=== PATIENT | female | born 1940 | race Caucasian/White ===

== ENCOUNTER 2017-12-17 16:08 | Inpatient (IN) | payer MEDICARE ==
[2017-12-17 19:00] VITALS: BP 163/69; PULSE 117; PULSE 99; RESP 18; TEMP 97.4; O2SAT 95
[2017-12-17] MEDS ORDERED: SODIUM CHLORIDE 0.9% FLUSH 10 ML FLUSH IV FLUSH PRN (19:45)
[2017-12-17] MEDS ORDERED: ACETAMINOPHEN 325 MG TAB PO PRN (19:45)
[2017-12-17] MEDS ORDERED: SENNOSIDES 8.6 MG TAB PO PRN (19:45)
[2017-12-17] MEDS ORDERED: NALOXONE HCL 0.4 MG/ML AMP IV PUSH PRN (19:45)
[2017-12-17] MEDS ORDERED: MAGNESIUM HYDROXIDE SUSP 30 ML CUP PO PRN (19:45)
[2017-12-17] MEDS ORDERED: ONDANSETRON HCL 4 MG/2 ML VIAL IVP PRN (19:45)
[2017-12-17] MEDS ORDERED: BISACODYL 10 MG SUPP RECTAL PRN (19:45)
[2017-12-17] MEDS ORDERED: TEMAZEPAM 15 MG CAP PO PRN (19:45)
[2017-12-17 20:00] VITALS: PULSE 122
[2017-12-17 21:00] VITALS: PULSE 86
--- NOTE | 2017-12-17 21:25 | HHI.HP ---
HPI Service [facility] Hospitalists Primary Care Physician Unknown Admission Diagnosis lung mass Chief Complaint: SOB,cough,weakness for 1 month Travel History International Travel<30 Days: No Contact w/Intl Traveler <30 Da: No Traveled to Known Affected Are: No History of Present Illness 77 y/o white female with hx uterine cancer s/p hysterectomy 2015 at that time chemo was recommended but patient declined due to hololistic ideas ,also had bilateral chronic lymphedema and in 2015 had bilateral DVT and had PE and was on coumadin for short tome but due to her beliefs was stopped off coumadin. Patient went to er with SOB,weakness,and chronic cough in ambulance was in atrial fib and recurred IV lopressor and continues to be in and out of Afib . Patient was in [place] ER and found on chest xray to have several lung mass and sent to [facility] for evaluation. Denies weight loss nausea or vomit and on no significant medications. Review of Systems Constitutional: COMPLAINS OF: Fatigue Respiratory: COMPLAINS OF: Cough, Shortness of breath Past Family Social History Past Medical History DVT pe ,uterine cancer Past Surgical History hysterectomy,IVC filter for DVT Reported Medications none Allergies: Coded Allergies: iron (Verified Allergy, Unknown, 12/17/17) LIQUID ONLY Social History NS,ND Physical Exam Vital Signs Vital Signs Date Time Temp Pulse Resp B/P (MAP) Pulse Ox O2 Delivery O2 Flow Rate FiO2 12/17/17 19:00 95 Nasal Cannula 2.00 12/17/17 19:00 97.4 99 18 163/69 (100) 95 Physical Exam GENERAL: This is a well-nourished, well-developed patient, in no apparent distress. SKIN: No rashes, ecchymoses or lesions. Cool and dry. HEAD: Atraumatic. Normocephalic. No temporal or scalp tenderness. EYES: Pupils equal round and reactive. Extraocular motions intact. No scleral icterus. No injection or drainage. ENT: Nose without bleeding, purulent drainage or septal hematoma. Throat without erythema, tonsillar hypertrophy or exudate. Uvula midline. Airway patent. NECK: Trachea midline. No JVD or lymphadenopathy. Supple, nontender, no meningeal signs. CARDIOVASCULAR: Regular rate and rhythm without murmurs, gallops, or rubs. RESPIRATORY: Decrease breath sounds with rhonchi bilateral bases GASTROINTESTINAL: Abdomen soft, non-tender, nondistended. No hepato-splenomegaly , or palpable masses. No guarding. MUSCULOSKELETAL: Extremities without clubbing, cyanosis,chronic plus 3 edema. No joint tenderness, effusion, or edema noted. No calf tenderness. Negative Homans sign bilaterally. NEUROLOGICAL: Awake and alert. Cranial nerves II through XII intact. Motor and sensory grossly within normal limits. Five out of 5 muscle strength in all muscle groups. Normal speech. Laboratory in review of labs had elevated WBC count Imaging chest xray lung masses with small effusions Course ekg sinus tach with intermit afib Caprini VTE Risk Assessment Caprini VTE Risk Assessment: Mod/High Risk (score >= 2) Caprini Risk Assessment Model Point Value = 1 Point Value = 2 Point Value = 3 Point Value = 5 Age 41-60 Minor surgery BMI > 25 kg/m2 Swollen legs Varicose veins or History of unexplained or recurrent spontaneous Oral contraceptives or hormone replacement Sepsis (< 1 month) Serious lung disease, including pneumonia (< 1 month) Abnormal pulmonary function Acute myocardial infarction Congestive heart failure (< 1 month) History of inflammatory bowel disease Medical patient at bed rest Age 61-74 Arthroscopic surgery Major open surgery (> 45 min) Laparoscopic surgery (> 45 min) Malignancy Confined to bed (> 72 hours) Immobilizing plaster cast Central venous access Age >= 75 History of VTE Family history of VTE Factor V Leiden Prothrombin [id number] Lupus anticoagulant Anticardiolipin antibodies Elevated serum homocysteine Heparin-induced thrombocytopenia Other congenital or acquired thrombophilia Stroke (< 1 month) Elective arthroplasty Hip, pelvis, or leg fracture Acute spinal cord injury (< 1 month) Prophylaxis Regimen Total Risk Factor Score Risk Level Prophylaxis Regimen 0-1 Low Early ambulation 2 Moderate Order ONE of the following: *Sequential Compression Device (SCD) *Heparin 5000 units SQ BID 3-4 Higher Order ONE of the following medications: *Heparin 5000 units SQ TID *Enoxaparin/Lovenox 40 mg SQ daily (WT < 150 kg, CrCl > 30 mL/min) *Enoxaparin/Lovenox 30 mg SQ daily (WT < 150 kg, CrCl > 10-29 mL/min) *Enoxaparin/Lovenox 30 mg SQ BID (WT < 150 kg, CrCl > 30 mL/min) AND/OR *Sequential Compression Device (SCD) 5 or more Highest Order ONE of the following medications: *Heparin 5000 units SQ TID (Preferred with Epidurals) *Enoxaparin/Lovenox 40 mg SQ daily (WT < 150 kg, CrCl > 30 mL/min) *Enoxaparin/Lovenox 30 mg SQ daily (WT < 150 kg, CrCl > 10-29 mL/min) *Enoxaparin/Lovenox 30 mg SQ BID (WT < 150 kg, CrCl > 30 mL/min) AND *Sequential Compression Device (SCD) Assessment and Plan Problem List: (1) Lung mass ICD Codes: R91.8 - Other nonspecific abnormal finding of lung field Plan: patient will let us get CT thorax but refuses contrast will recheck labs in am if CT suggests tuor patient is in agreement for BX (2) Atrial fibrillation ICD Codes: I48.91 - Unspecified atrial fibrillation Status: Acute Plan: will use lopressor prn (3) Lymphedema ICD Codes: I89.0 - Lymphedema, not elsewhere classified Plan: patient has wraps will continue Assessment and Plan further plan as case develops Code Status full Discussed Condition With patient and family Physician Certification 2 Midnight Certification Type: Admission for Inpatient Services Order for Inpatient Services The services are ordered in accordance with Medicare regulations or non- Medicare payer requirements, as applicable. In the case of services not specified as inpatient-only, they are appropriately provided as inpatient services in accordance with the 2-midnight benchmark. Estimated LOS (days): 3 3 days is the estimated time the patient will need to remain in the hospital, assuming treatment plan goals are met and no additional complications. Post-Hospital Plan: Not yet determined Jonathan Layton MD Dec 17, 2017 21:25
[2017-12-17] MEDS: DOCUSATE SODIUM 50 MG/SENNA 8.6 MG TAB PO SCH (21:54)
[2017-12-17] MEDS: SODIUM CHLORIDE 0.9% FLUSH 10 ML FLUSH IV FLUSH SCH (21:54)
[2017-12-17] MEDS: METOPROLOL TARTRATE 5 MG/5 ML VIAL IV PUSH PRN (21:54)
[2017-12-17 22:00] VITALS: PULSE 74
[2017-12-17 23:00] VITALS: BP 117/82; PULSE 109; PULSE 118; RESP 18; TEMP 97.8; O2SAT 96
--- NOTE | 2017-12-17 23:48 | RADRPT ---
EXAM DATE/TIME: 12/17/2017 23:30 [facility] COMPARISON: No previous studies available for comparison. INDICATIONS : Shortness of breath; bilateral pulmonary masses on chest x-ray. RADIATION DOSE: 15.58 CTDIvol (mGy) MEDICAL HISTORY : Uterine cancer SURGICAL HISTORY : Hysterectomy. ENCOUNTER: Subsequent ACUITY: 1 month PAIN SCALE: 0/10 LOCATION: chest TECHNIQUE: Volumetric scanning of the chest was performed. Using automated exposure control and adjustment of t he mA and/or kV according to patient size, radiation dose was kept as low as reasonably achievable to obtain optimal diagnostic quality images. DICOM format image data is available electronically for r eview and comparison. Follow-up recommendations for detected pulmonary nodules are based at a minimum on nodule size and pa tient risk factors according to Fleischner Society Guidelines. FINDINGS: No prior study for comparison. Reportedly there is a history of uterine cancer. There are large bilateral lung masses measuring up to 7.5 cm in the left upper lobe, 7.7 cm in the ri ght upper lobe and 10.5 cm and 6.7 cm in the right lower lobe. Multiple additional smaller nodules ar e present in the lungs. Mildly enlarged pretracheal lymph node measuring up to 1.3 cm and precarinal lymph node measuring up to 2 cm in diameter. A small right-sided pleural effusion. No pericardial effusion. No acute bony abnormalities. No acute findings in the upper abdomen. Large calcified gallstones. CONCLUSION: 1. Numerous large lung masses as well as smaller lung nodules characteristic of metastatic disease. M ild mediastinal adenopathy. 2. Small right-sided pleural effusion. 3. Cholelithiasis. Ashu Ugalde MD on December 17, 2017 at 23:42 Board Certified Radiologist. This report was verified electronically.
[2017-12-18] VITALS (29 sets, daily range): BP systolic 139–152; BP diastolic 64–79; PULSE 79–132; RESP 18–20; TEMP 97.5–98.4; O2SAT 94–98
[2017-12-18] MEDS: METOPROLOL TARTRATE 5 MG/5 ML VIAL IV PUSH PRN ×2 (02:11→09:04)
[2017-12-18 04:13] LABS: AUTOMATED NEUTROPHIL # 11.6 TH/MM3 (1.8-7.7); BASOPHIL % 0.2 % (0.0-2.0); EOSINOPHIL # 0.1 TH/MM3 (0-0.4); EOSINOPHIL % 0.6 % (0.0-4.0); HEMATOCRIT 34.9 % (35.0-46.0); HEMOGLOBIN 10.8 GM/DL (11.6-15.3); LYMPH % 4.7 % (9.0-44.0); LYMPHOCYTE # 0.6 TH/MM3 (1.0-4.8); MEAN CELL VOLUME 81.7 FL (80.0-100.0); MEAN CORPUSCULAR HEMOGLOBIN 25.3 PG (27.0-34.0); MEAN PLATELET VOLUME 7.2 FL (7.0-11.0); MONO % 8.2 % (0.0-8.0); MONOCYTE # 1.1 TH/MM3 (0-0.9); NEUT % 86.3 % (16.0-70.0); PLATELET COUNT 440 TH/MM3 (150-450); RED BLOOD COUNT 4.27 MIL/MM3 (4.00-5.30); RED CELL DISTRIBUTION WIDTH 19.2 % (11.6-17.2); WHITE BLOOD COUNT 13.4 TH/MM3 (4.0-11.0)
[2017-12-18 04:18] LABS: INTERNATIONAL NORMALIZED RATIO 1.2 RATIO; PROTHROMBIN TIME - PATIENT 11.8 SEC (9.8-11.6)
[2017-12-18 04:32] LABS: ALBUMIN 1.9 GM/DL (3.4-5.0); AST (GOT) 24 U/L (15-37); BLOOD UREA NITROGEN 24 MG/DL (7-18); CALCIUM 9.7 MG/DL (8.5-10.1); CHLORIDE 104 MEQ/L (98-107); CREATININE 0.88 MG/DL (0.50-1.00); GLOMERULAR FILTRATION RATE 62 ML/MIN (>89); GLUCOSE,RANDOM 118 MG/DL (74-106); SODIUM (NA) 141 MEQ/L (136-145)
[2017-12-18 04:35] LABS: ALKALINE PHOSPHATASE 71 U/L (45-117); ALT (GPT) 13 U/L (10-53); TOTAL BILIRUBIN ADULT 0.6 MG/DL (0.2-1.0); TOTAL PROTEIN 7.2 GM/DL (6.4-8.2)
[2017-12-18] MEDS: DOCUSATE SODIUM 50 MG/SENNA 8.6 MG TAB PO SCH ×2 (09:00→20:17)
[2017-12-18] MEDS: SODIUM CHLORIDE 0.9% FLUSH 10 ML FLUSH IV FLUSH SCH ×2 (09:04→20:17)
[2017-12-18] MEDS: DILTIAZEM HCL 60 MG TAB PO SCH ×3 (12:45→23:22)
--- NOTE | 2017-12-18 17:28 | HHI.PR ---
Subjective Remarks No new complaints. Objective Vitals Vital Signs Date Time Temp Pulse Resp B/P (MAP) Pulse Ox O2 Delivery O2 Flow Rate FiO2 12/18/17 17:00 121 12/18/17 16:00 112 12/18/17 15:32 97.5 115 20 146/64 (91) 98 12/18/17 15:00 116 12/18/17 14:00 114 12/18/17 13:00 119 12/18/17 12:00 129 12/18/17 11:29 97.5 116 20 147/66 (93) 97 12/18/17 11:00 115 12/18/17 10:00 112 12/18/17 09:00 110 12/18/17 08:00 120 12/18/17 07:47 97 Nasal Cannula 2.00 12/18/17 07:46 98.0 121 20 150/72 (98) 97 12/18/17 07:00 119 12/18/17 06:00 115 12/18/17 05:00 120 12/18/17 04:00 98.4 119 18 152/79 (103) 98 12/18/17 04:00 119 12/18/17 03:00 113 12/18/17 02:00 79 12/18/17 01:00 132 12/18/17 00:00 123 12/17/17 23:00 118 12/17/17 23:00 97.8 109 18 117/82 (94) 96 12/17/17 22:00 74 12/17/17 21:00 86 12/17/17 20:00 122 12/17/17 19:00 95 Nasal Cannula 2.00 12/17/17 19:00 117 12/17/17 19:00 95 Nasal Cannula 2.00 12/17/17 19:00 97.4 99 18 163/69 (100) 95 Result Diagram: 12/18/17 0400 12/18/17 0400 Other Results Laboratory Tests Test 12/18/17 04:00 White Blood Count 13.4 TH/MM3 Red Blood Count 4.27 MIL/MM3 Hemoglobin 10.8 GM/DL Hematocrit 34.9 % Mean Corpuscular Volume 81.7 FL Mean Corpuscular Hemoglobin 25.3 PG Mean Corpuscular Hemoglobin Concent 31.0 % Red Cell Distribution Width 19.2 % Platelet Count 440 TH/MM3 Mean Platelet Volume 7.2 FL Neutrophils (%) (Auto) 86.3 % Lymphocytes (%) (Auto) 4.7 % Monocytes (%) (Auto) 8.2 % Eosinophils (%) (Auto) 0.6 % Basophils (%) (Auto) 0.2 % Neutrophils # (Auto) 11.6 TH/MM3 Lymphocytes # (Auto) 0.6 TH/MM3 Monocytes # (Auto) 1.1 TH/MM3 Eosinophils # (Auto) 0.1 TH/MM3 Basophils # (Auto) 0.0 TH/MM3 CBC Comment DIFF FINAL Differential Comment Prothrombin Time 11.8 SEC Prothromb Time International Ratio 1.2 RATIO Blood Urea Nitrogen 24 MG/DL Creatinine 0.88 MG/DL Random Glucose 118 MG/DL Total Protein 7.2 GM/DL Albumin 1.9 GM/DL Calcium Level 9.7 MG/DL Alkaline Phosphatase 71 U/L Aspartate Amino Transf (AST/SGOT) 24 U/L Alanine Aminotransferase (ALT/SGPT) 13 U/L Total Bilirubin 0.6 MG/DL Sodium Level 141 MEQ/L Potassium Level 3.9 MEQ/L Chloride Level 104 MEQ/L Carbon Dioxide Level 28.0 MEQ/L Anion Gap 9 MEQ/L Estimat Glomerular Filtration Rate 62 ML/MIN Imaging Last Impressions Chest CT 12/17/17 0000 Signed Impressions: Service Date/Time: Sunday, December 17, 2017 23:30 - CONCLUSION: 1. Numerous large lung masses as well as smaller lung nodules characteristic of metastatic disease. Mild mediastinal adenopathy. 2. Small right-sided pleural effusion. 3. Cholelithiasis. Ashu Ugalde MD c Objective Remarks GENERAL: This is a well-nourished, well-developed patient, in no apparent distress. CARDIOVASCULAR: Regular rate and rhythm without murmurs, gallops, or rubs. RESPIRATORY: Clear to auscultation. Breath sounds equal bilaterally. No wheezes , rales, or rhonchi. GASTROINTESTINAL: Abdomen soft, non-tender, nondistended. Normal active bowel sounds MUSCULOSKELETAL: Extremities without clubbing, cyanosis, or edema. NEURO: Alert & Oriented x4 to person, place, time, situation. Moves all ext x4 A/P Problem List: (1) Lung mass ICD Codes: R91.8 - Other nonspecific abnormal finding of lung field Plan: - Pt is a 77 y/o WF with hx uterine cancer s/p hysterectomy in 2014, at that time chemo was recommended but patient declined due to holistic ideas. She also had bilateral chronic lymphedema and in 2014 had bilateral DVT and had PE and was on Coumadin for short tome but due to her beliefs this was stopped. - Patient went to ED in [place] on 12/17, with complaints of SOB, weakness, and chronic cough. En route to the ED, in the ambulance, pt went into A. fib and received IV Lopressor. - She had a CXR in the ED which revealed bilateral large pulmonary masses. - She was transferred to [facility] for further management - CT Chest (12/18) --> Numerous large lung masses, measuring up to 7.5cm in the left upper lobe, 7.7cm in the right upper lobe and 10.5 and 6.7cm in the right lower lobe as well as smaller lung nodules characteristic of metastatic disease. Mild mediastinal adenopathy. Small right-sided pleural effusion. - Recommending biopsy to further evaluate these lung masses (2) Atrial fibrillation ICD Codes: I48.91 - Unspecified atrial fibrillation Status: Acute Plan: - Pt was initially given IV Lopressor - Pt still intermittently in A. fib RVR - Start Cardizem 60mg PO Q6H - Telemetry - The hospital does not have IV Cardizem available at this time - We will give IV Digoxin as pt has remained with HR in the 120-130's on telemetry (3) Lymphedema ICD Codes: I89.0 - Lymphedema, not elsewhere classified Plan: - Patient has wraps on and we will continue those for now Assessment and Plan Patient examined. Assessment and plan formulated with Mindy Landry PA-C. I agree with the above. Case d/w pt and 2 daughters at the bedside. Pt denies palpitations. telemetry shows A.Fib Pt receiving prn IV metoprolol, scheduled short acting cardizems. Pt remains tachycardic. IV digoxin ordered. Results of CT thorax d/w pt and daughters. B/L multiple lung masses. Will obtain CT guided biopsy of lung mass. Mindy Landry Dec 18, 2017 17:27 Chan Kaplan DO Dec 19, 2017 06:11
[2017-12-18] MEDS ORDERED: DIGOXIN 0.5 MG/2 ML VIAL IV PUSH ONE (18:00)
[2017-12-19] VITALS (31 sets, daily range): BP systolic 144–154; BP diastolic 60–74; PULSE 76–113; RESP 18–20; TEMP 97.4–98.2; O2SAT 92–97
[2017-12-19] MEDS: DIGOXIN 0.5 MG/2 ML VIAL IV PUSH SCH ×2 (03:17→08:54)
[2017-12-19] MEDS: DILTIAZEM HCL 60 MG TAB PO SCH ×4 (06:11→23:37)
[2017-12-19] MEDS: SODIUM CHLORIDE 0.9% FLUSH 10 ML FLUSH IV FLUSH SCH ×2 (08:39→21:35)
[2017-12-19] MEDS: DOCUSATE SODIUM 50 MG/SENNA 8.6 MG TAB PO SCH ×2 (08:39→21:00)
[2017-12-19] MEDS ORDERED: LIDOCAINE HCL 1% 20 ML VIAL ONE (09:04)
[2017-12-19] MEDS ORDERED: MIDAZOLAM HCL 2 MG/2 ML VIAL ONE (09:48)
--- NOTE | 2017-12-19 10:12 | PD.RAD ---
Post CT Procedure Prog Note Pre Procedure Diagnosis: (1) Lung mass Post Procedure Diagnosis: (1) Lung mass Procedure Date: Dec 19, 2017 Supervising Radiologist: Bijan Montes Anesthesia: Conscious Sedation Plan of Activity Patient to Unit: ROPU Patient Condition: Good See PACS Report for procedural detail/treatment Bijan Montes MD Dec 19, 2017 10:12
--- NOTE | 2017-12-19 10:56 | RADRPT ---
EXAM DATE/TIME: 12/19/2017 09:53 [facility] COMPARISON: No previous studies available for comparison. INDICATIONS : Multiple large bilateral lung masses. The right lung mass will be targeted. SEDATION TIME: 30 minutes BIOPSY SITE: Right lung MEDICATION(S): 1.) 2 mg midazolam (Versed) IV 2.) 100 mcg fentanyl (Sublimaze) IV DEVICE(S): 1.) 18 gauge Core biopsy needle Bard MEDICAL HISTORY : None. SURGICAL HISTORY : Hysterectomy. ENCOUNTER: Initial ACUITY: 1 day PAIN SCORE: 0/10 LOCATION: Right chest A total of three core specimen(s) were obtained and sent to the laboratory for pathologic evaluation. PROCEDURE: 1. CT guided lung biopsy. 2. Conscious sedation with continuous EKG and oximetry monitoring. 3. EKG and oximetry remained stable throughout the procedure. Prior to the procedure informed consent was obtained. Any appropriate prior imaging studies were rev iewed. Using automated exposure control and adjustment of the mA and/or kV according to patient size, radiation dose was kept as low as reasonably achievable to obtain optimal diagnostic quality images. DICOM format image data is available electronically for review and comparison. The site was prepped in a sterile fashion. Full sterile technique was used, including cap, mask, tony rile gloves and gown and a large sterile sheet. Hand hygiene and 2% chlorhexidine and/or betadine/al cohol prep was utilized per protocol for cutaneous antisepsis. The skin and subcutaneous tissues wer e infiltrated with local anesthetic solution. With CT guidance the previously identified target was localized. Biopsy was performed using the presc ribed needle as above. Adequate hemostasis was obtained with compression at the puncture site. Follow-up CT scan reveals no pneumothorax. Conscious sedation was performed with the prescribed dosages and duration as above in the presence of an independent trained radiology nurse to assist in the monitoring of the patient. EKG and oximetry remained stable throughout the procedure. The patient tolerated the procedure well and there were no complications. The patient was sent to Radiology Outpatient Unit in stable condition. CONCLUSION: Uncomplicated CT guided biopsy. Bijan Montes MD on December 19, 2017 at 10:53 Board Certified Radiologist. This report was verified electronically.
--- NOTE | 2017-12-19 11:56 | EKG ---
Date Performed: 12/19/2017 Time Performed: 09:10:58 PTAGE: 77 years EKG: Sinus tachycardia with PVC(s) Leftward axis Possible inferior infarct - age undetermined Ab normal ECG NO PREVIOUS TRACING DOCTOR: Tay Mccartney Interpretating Date/Time 12/19/2017 11:54:54
--- NOTE | 2017-12-19 12:30 | RADRPT ---
EXAM DATE/TIME: 12/19/2017 12:05 [facility] COMPARISON: CT NEEDLE BIOPSY LUNG, RIGHT, December 19, 2017, 9:53. INDICATIONS : Post lung biopsy MEDICAL HISTORY : multiple lung masses SURGICAL HISTORY : Hysterectomy. infusport ENCOUNTER: Subsequent ACUITY: 1 day PAIN SCORE: 0/10 LOCATION: Right chest FINDINGS: A single frontal expiratory view of the chest was performed. Bilateral pulmonary masses. Left sided p ort with tip in the SVC. The cardio-mediastinal contours and bronchopulmonary markings are unremarkable for an expiratory exam . Osseous structures are intact. CONCLUSION: No pneumothorax. Bora Orlando MD on December 19, 2017 at 12:26 Board Certified Radiologist. This report was verified electronically.
--- NOTE | 2017-12-19 18:16 | HHI.PR ---
Subjective Remarks No new complaints. Poor PO intake. Objective Vitals Vital Signs Date Time Temp Pulse Resp B/P (MAP) Pulse Ox O2 Delivery O2 Flow Rate FiO2 12/19/17 18:00 98 12/19/17 17:00 107 12/19/17 16:00 103 12/19/17 15:02 97.4 107 18 154/69 (97) 95 12/19/17 15:00 76 12/19/17 14:00 98 12/19/17 13:00 102 12/19/17 12:00 105 12/19/17 11:49 97 Nasal Cannula 1.00 12/19/17 11:05 97.6 111 18 153/68 (96) 96 12/19/17 11:00 110 12/19/17 10:56 97.6 112 18 145/60 (88) 96 12/19/17 10:26 97.6 111 18 153/68 (96) 96 12/19/17 09:00 107 12/19/17 08:00 104 12/19/17 07:47 97.4 91 18 144/72 (96) 95 12/19/17 07:46 95 Nasal Cannula 2.00 12/19/17 07:00 85 12/19/17 06:06 109 12/19/17 05:38 85 12/19/17 04:23 97.7 106 147/63 (91) 92 12/19/17 04:16 113 12/19/17 03:00 106 12/19/17 02:16 77 12/19/17 01:14 111 12/19/17 00:27 87 12/18/17 23:49 97.6 116 139/65 (89) 95 12/18/17 23:46 108 12/18/17 22:00 107 12/18/17 21:45 94 Nasal Cannula 1.00 12/18/17 21:00 110 12/18/17 20:00 110 12/18/17 19:00 119 12/18/17 19:00 97.9 119 152/69 (96) 95 12/18/17 19:00 95 Nasal Cannula 2.00 12/19/17 12/19/17 12/20/17 15:00 23:00 07:00 Intake Total 840 ml Balance 840 ml Intake Oral 840 ml # Voids 3 Result Diagram: 12/18/17 0400 12/18/17 0400 Imaging Last Impressions Chest X-Ray 12/19/17 1159 Signed Impressions: Service Date/Time: Tuesday, December 19, 2017 12:05 - CONCLUSION: No pneumothorax. Bora Orlando MD Lung Biopsy CT 12/18/17 0000 Signed Impressions: Service Date/Time: Tuesday, December 19, 2017 09:53 - CONCLUSION: Uncomplicated CT guided biopsy. Bijan Montes MD Chest CT 12/17/17 0000 Signed Impressions: Service Date/Time: Sunday, December 17, 2017 23:30 - CONCLUSION: 1. Numerous large lung masses as well as smaller lung nodules characteristic of metastatic disease. Mild mediastinal adenopathy. 2. Small right-sided pleural effusion. 3. Cholelithiasis. Ashu Ugalde MD Objective Remarks GENERAL: This is a well-nourished, well-developed patient, in no apparent distress. CARDIOVASCULAR: Regular rate and rhythm without murmurs, gallops, or rubs. RESPIRATORY: Clear to auscultation. Breath sounds equal bilaterally. No wheezes , rales, or rhonchi. GASTROINTESTINAL: Abdomen soft, non-tender, nondistended. Normal active bowel sounds MUSCULOSKELETAL: Extremities without clubbing, cyanosis, or edema. NEURO: Alert & Oriented x4 to person, place, time, situation. Moves all ext x4 A/P Problem List: (1) Lung mass ICD Codes: R91.8 - Other nonspecific abnormal finding of lung field Plan: - Pt is a 77 y/o WF with hx uterine cancer s/p hysterectomy in 2014, at that time chemo was recommended but patient declined due to holistic ideas. She also had bilateral chronic lymphedema and in 2014 had bilateral DVT and had PE and was on Coumadin for short tome but due to her beliefs this was stopped. - Patient went to ED in [place] on 12/17, with complaints of SOB, weakness, and chronic cough. En route to the ED, in the ambulance, pt went into A. fib and received IV Lopressor. - She had a CXR in the ED which revealed bilateral large pulmonary masses. - She was [facility] to [facility] for [facility] management - CT Chest (12/18) --> Numerous large lung masses, measuring up to 7.5cm in the left upper lobe, 7.7cm in the right upper lobe and 10.5 and 6.7cm in the right lower lobe as well as smaller lung nodules characteristic of metastatic disease. Mild mediastinal adenopathy. Small right-sided pleural effusion. - CT guided right lung biopsy obtain (12/19) --> pathology pending - trial of remeron as appetite stimulant - request PT - DVT prophylaxis - supportive care (2) Atrial fibrillation ICD Codes: I48.91 - Unspecified atrial fibrillation Status: Acute Plan: - observe on telemetry - Pt was initially given IV Lopressor - Pt still intermittently in A. fib RVR - Cardizem 60mg PO Q6H - Telemetry - The hospital does not have IV Cardizem available at this time - received IV digoxin x 2 - digoxin level 3.8 (12/19) - NO c/o nausea. No digoxin effect noted on EKG - hold digoxin - repeat digoxin level in AM (3) Lymphedema ICD Codes: I89.0 - Lymphedema, not elsewhere classified Plan: - Patient has wraps on and we will continue those for now Chan Kaplan DO Dec 19, 2017 18:16
[2017-12-19] MEDS: ENOXAPARIN SODIUM 40 MG/0.4 ML SYRINGE SQ SCH (18:33)
[2017-12-19] MEDS: MIRTAZAPINE 15 MG TAB PO SCH (21:35)
[2017-12-20] VITALS (25 sets, daily range): BP systolic 105–151; BP diastolic 50–69; PULSE 82–115; RESP 16–20; TEMP 96.3–98.4; O2SAT 93–95
[2017-12-20 04:06] LABS: AUTOMATED NEUTROPHIL # 8.5 TH/MM3 (1.8-7.7); BASOPHIL # 0.1 TH/MM3 (0-0.2); BASOPHIL % 0.7 % (0.0-2.0); EOSINOPHIL # 0.1 TH/MM3 (0-0.4); EOSINOPHIL % 0.7 % (0.0-4.0); HEMOGLOBIN 11.4 GM/DL (11.6-15.3); LYMPH % 6.2 % (9.0-44.0); LYMPHOCYTE # 0.6 TH/MM3 (1.0-4.8); MEAN CELL VOLUME 81.9 FL (80.0-100.0); MEAN CORPUSCULAR HEMOGLOBIN 25.9 PG (27.0-34.0); MEAN CORPUSCULAR HGB CONC 31.6 % (32.0-36.0); MEAN PLATELET VOLUME 7.4 FL (7.0-11.0); MONO % 9.5 % (0.0-8.0); NEUT % 82.9 % (16.0-70.0); PLATELET COUNT 434 TH/MM3 (150-450); RED CELL DISTRIBUTION WIDTH 19.5 % (11.6-17.2); WHITE BLOOD COUNT 10.3 TH/MM3 (4.0-11.0)
[2017-12-20 04:49] LABS: BICARBONATE 28.9 MEQ/L (21.0-32.0); CALCIUM 9.5 MG/DL (8.5-10.1); CREATININE 0.6 MG/DL (0.50-1.00); DIGOXIN 1.7 NG/ML (0.8-2.0); MAGNESIUM 1.9 MG/DL (1.5-2.5)
[2017-12-20] MEDS: DILTIAZEM HCL 60 MG TAB PO SCH (06:11)
[2017-12-20] MEDS: SODIUM CHLORIDE 0.9% FLUSH 10 ML FLUSH IV FLUSH SCH ×2 (09:00→20:51)
[2017-12-20] MEDS: DIGOXIN 0.5 MG/2 ML VIAL IV PUSH SCH (09:10)
[2017-12-20] MEDS: DOCUSATE SODIUM 50 MG/SENNA 8.6 MG TAB PO SCH ×2 (09:10→20:51)
--- NOTE | 2017-12-20 10:12 | HHI.PR ---
Subjective Remarks No new complaints. Objective Vitals Vital Signs Date Time Temp Pulse Resp B/P (MAP) Pulse Ox O2 Delivery O2 Flow Rate FiO2 12/20/17 10:00 100 12/20/17 09:00 94 12/20/17 08:00 102 12/20/17 07:15 86 12/20/17 07:15 94 Nasal Cannula 2.00 12/20/17 07:15 98.1 105 20 136/60 (85) 94 12/20/17 06:11 100 12/20/17 05:00 105 12/20/17 04:00 90 12/20/17 03:45 98.4 102 20 151/69 (96) 93 12/20/17 03:00 106 12/20/17 02:00 115 12/20/17 01:00 104 12/20/17 00:00 98.4 115 20 146/65 (92) 93 12/20/17 00:00 94 Nasal Cannula 2.00 12/20/17 00:00 104 12/20/17 00:00 106 12/19/17 23:00 112 12/19/17 22:12 92 Nasal Cannula 1.00 12/19/17 22:00 94 12/19/17 21:00 108 12/19/17 20:00 98.2 87 20 145/74 (97) 93 12/19/17 20:00 108 12/19/17 20:00 93 Nasal Cannula 2.00 12/19/17 19:00 87 12/19/17 18:00 98 12/19/17 17:00 107 12/19/17 16:00 103 12/19/17 15:02 97.4 107 18 154/69 (97) 95 12/19/17 15:00 76 12/19/17 14:00 98 12/19/17 13:00 102 12/19/17 12:00 105 12/19/17 11:49 97 Nasal Cannula 1.00 12/19/17 11:05 97.6 111 18 153/68 (96) 96 12/19/17 11:00 110 12/19/17 10:56 97.6 112 18 145/60 (88) 96 12/19/17 10:26 97.6 111 18 153/68 (96) 96 Result Diagram: 12/20/1733112/20/17 033 Imaging Last Impressions Chest X-Ray 12/19/17 1159 Signed Impressions: Service Date/Time: Tuesday, December 19, 2017 12:05 - CONCLUSION: No pneumothorax. Bora Orlando MD Lung Biopsy CT 12/18/17 0000 Signed Impressions: Service Date/Time: Tuesday, December 19, 2017 09:53 - CONCLUSION: Uncomplicated CT guided biopsy. Bijan Montes MD Chest CT 12/17/17 0000 Signed Impressions: Service Date/Time: Sunday, December 17, 2017 23:30 - CONCLUSION: 1. Numerous large lung masses as well as smaller lung nodules characteristic of metastatic disease. Mild mediastinal adenopathy. 2. Small right-sided pleural effusion. 3. Cholelithiasis. Ashu Ugalde MD Objective Remarks GENERAL: This is a well-nourished, well-developed patient, in no apparent distress. CARDIOVASCULAR: Regular rate and rhythm without murmurs, gallops, or rubs. RESPIRATORY: Clear to auscultation. Breath sounds equal bilaterally. No wheezes , rales, or rhonchi. GASTROINTESTINAL: Abdomen soft, non-tender, nondistended. Normal active bowel sounds MUSCULOSKELETAL: Extremities without clubbing, cyanosis, or edema. NEURO: Alert & Oriented x4 to person, place, time, situation. Moves all ext x4 A/P Problem List: (1) Lung mass ICD Codes: R91.8 - Other nonspecific abnormal finding of lung field Plan: - Pt is a 77 y/o WF with hx uterine cancer s/p hysterectomy in 2014, at that time chemo was recommended but patient declined due to holistic ideas. She also had bilateral chronic lymphedema and in 2014 had bilateral DVT and had PE and was on Coumadin for short tome but due to her beliefs this was stopped. - Patient went to ED in [place] on 12/17, with complaints of SOB, weakness, and chronic cough. En route to the ED, in the ambulance, pt went into A. fib and received IV Lopressor. - She had a CXR in the ED which revealed bilateral large pulmonary masses. - She was transferred to [facility] for further management - CT Chest (12/18) --> Numerous large lung masses, measuring up to 7.5cm in the left upper lobe, 7.7cm in the right upper lobe and 10.5 and 6.7cm in the right lower lobe as well as smaller lung nodules characteristic of metastatic disease. Mild mediastinal adenopathy. Small right-sided pleural effusion. - CT guided right lung biopsy obtain (12/19) --> pathology pending. - case d/w pathology, Dr. Ma - 3 large cores were obtained but unfortunately they are necrotic, so NOT diagnostic - Case d/w pt/daughter/family at bedside. - They request repeat Biopsy to obtain tissue diagnosis - NPO after MN for Repeat CT guided Bx of lung mass 12/21 - trial of remeron as appetite stimulant - PT - DVT prophylaxis - supportive care (2) Atrial fibrillation ICD Codes: I48.91 - Unspecified atrial fibrillation Status: Acute Plan: - observe on telemetry - Pt was initially given IV Lopressor - Pt still intermittently in A. fib RVR, spiking up to 120 bpm - change to long acting cardizem 300mg daily - resume digoxin 0.25mg daily - digoxin level 3.8 (12/19), 1.7 (12/20) - repeat digoxin level in AM (3) Lymphedema ICD Codes: I89.0 - Lymphedema, not elsewhere classified Plan: - Patient has wraps on and we will continue those for now Problem Qualifiers (1) Atrial fibrillation: Qualified Codes: I48.2 - Chronic atrial fibrillation Chan Kaplan DO Dec 20, 2017 10:12
[2017-12-20] MEDS: DILTIAZEM-CD 300 MG CAP ER PO SCH (12:05)
[2017-12-20] MEDS: 1/2 NS + KCL 20 MEQ INJ 1,000 ML IV SCH (12:19)
[2017-12-20] MEDS: ENOXAPARIN SODIUM 40 MG/0.4 ML SYRINGE SQ SCH (17:45)
[2017-12-20] MEDS: MIRTAZAPINE 15 MG TAB PO SCH (20:51)
[2017-12-21] VITALS (22 sets, daily range): BP systolic 115–148; BP diastolic 56–71; PULSE 80–98; RESP 16–22; TEMP 97.4–98.2; O2SAT 92–96
[2017-12-21] MEDS: 1/2 NS + KCL 20 MEQ INJ 1,000 ML IV SCH ×2 (04:35→12:50)
[2017-12-21] MEDS: DIGOXIN 0.125 MG TAB PO SCH (09:05)
[2017-12-21] MEDS: DOCUSATE SODIUM 50 MG/SENNA 8.6 MG TAB PO SCH ×2 (09:05→20:53)
[2017-12-21] MEDS: SODIUM CHLORIDE 0.9% FLUSH 10 ML FLUSH IV FLUSH SCH ×2 (09:06→20:55)
[2017-12-21] MEDS: DILTIAZEM-CD 300 MG CAP ER PO SCH (09:23)
[2017-12-21] MEDS ORDERED: MIDAZOLAM HCL 2 MG/2 ML VIAL ONE (10:37)
--- NOTE | 2017-12-21 12:08 | RADRPT ---
EXAM DATE/TIME: 12/21/2017 11:44 [facility] COMPARISON: CHEST EXPIRATION ONLY, December 19, 2017, 12:05. INDICATIONS : Post lung biopsy. Evaluate for pneumothorax. MEDICAL HISTORY : Uterine cancer SURGICAL HISTORY : Hysterectomy. ENCOUNTER: Subsequent ACUITY: 1 day PAIN SCORE: 0/10 LOCATION: Right chest FINDINGS: A single AP expiratory erect view of the chest was obtained and again demonstrates the left subclavia n implantable port catheter in place. There is no pneumothorax. The bilateral lung masses are again n oted without significant change. The heart size is within normal limits. There are no new infiltrates . CONCLUSION: Stable appearance with no pneumothorax after lung biopsy. Adonis Fonseca MD on December 21, 2017 at 12:05 Board Certified Radiologist. This report was verified electronically.
[2017-12-21] MEDS ORDERED: LIDOCAINE HCL 1% 10 ML VIAL OTHER ONE (12:23)
--- NOTE | 2017-12-21 13:40 | RADRPT ---
EXAM DATE/TIME: 12/21/2017 11:03 [facility] COMPARISON: CT NEEDLE BIOPSY LUNG, RIGHT, December 19, 2017, 9:53. INDICATIONS : Right lung mass. SEDATION TIME: 30 minutes BIOPSY SITE: Right MEDICATION(S): 1.) 1.5 mg midazolam (Versed) IV 2.) 75 mcg fentanyl (Sublimaze) IV DEVICE(S): 1.) 18 gauge Temno core biopsy needle MEDICAL HISTORY : None. SURGICAL HISTORY : Hysterectomy. ENCOUNTER: Initial ACUITY: 1 day PAIN SCORE: 0/10 LOCATION: Right A total of two core specimen(s) were obtained and sent to the laboratory for pathologic evaluation. Samson walters teletray operator confirmed adequate tissue for diagnosis after the first pass. PROCEDURE: 1. CT guided lung biopsy. 2. Conscious sedation with continuous EKG and oximetry monitoring. 3. EKG and oximetry remained stable throughout the procedure. Prior to the procedure informed consent was obtained. Any appropriate prior imaging studies were rev iewed. Using automated exposure control and adjustment of the mA and/or kV according to patient size, radiation dose was kept as low as reasonably achievable to obtain optimal diagnostic quality images. DICOM format image data is available electronically for review and comparison. The site was prepped in a sterile fashion. Full sterile technique was used, including cap, mask, tony rile gloves and gown and a large sterile sheet. Hand hygiene and 2% chlorhexidine and/or betadine/al cohol prep was utilized per protocol for cutaneous antisepsis. The skin and subcutaneous tissues wer e infiltrated with local anesthetic solution. With CT guidance the previously identified target was localized. Biopsy was performed using the presc ribed needle as above. Adequate hemostasis was obtained with compression at the puncture site. Follow-up CT scan reveals no pneumothorax. Conscious sedation was performed with the prescribed dosages and duration as above in the presence of an independent trained radiology nurse to assist in the monitoring of the patient. EKG and oximetry remained stable throughout the procedure. The patient tolerated the procedure well and there were no complications. The patient was sent to Radiology Outpatient Unit in stable condition. CONCLUSION: Uncomplicated CT guided biopsy. Aly Samuel MD on December 21, 2017 at 13:36 Board Certified Radiologist. This report was verified electronically.
--- NOTE | 2017-12-21 14:29 | RADRPT ---
EXAM DATE/TIME: 12/21/2017 13:35 [facility] COMPARISON: CHEST EXPIRATION ONLY, December 21, 2017, 11:44. INDICATIONS : Pneumothorax. MEDICAL HISTORY : None. SURGICAL HISTORY : Infuse a port. ENCOUNTER: Subsequent ACUITY: 4 - 6 days PAIN SCORE: 0/10 LOCATION: chest FINDINGS: There is no evidence of pneumothorax status post right lung biopsy. Multiple large bilateral pulmonar y masses are stable. Left subclavian [id number] is unchanged in position. The heart is stable. Deg enerative changes and scoliosis of the thoracic spine are noted. CONCLUSION: No pneumothorax status post right lung biopsy. Stable large bilateral pulmonary michael s. Degenerative changes and scoliosis of the thoracic spine. Aly Samuel MD on December 21, 2017 at 14:25 Board Certified Radiologist. This report was verified electronically.
--- NOTE | 2017-12-21 15:06 | HHI.PR ---
Subjective Remarks No new complaints. Objective Vitals Vital Signs Date Time Temp Pulse Resp B/P (MAP) Pulse Ox O2 Delivery O2 Flow Rate FiO2 12/21/17 14:07 97.5 83 20 122/58 (79) 95 12/21/17 13:24 83 22 116/63 (80) 94 12/21/17 13:09 83 12/21/17 12:54 97.6 93 22 115/70 (85) 93 12/21/17 12:35 96 18 136/62 (86) 93 12/21/17 12:05 95 18 139/66 (90) 92 12/21/17 11:50 97.4 98 18 148/68 (94) 93 12/21/17 08:30 97.7 97 18 122/71 (88) 94 12/21/17 08:30 95 Nasal Cannula 2.00 12/21/17 08:02 93 Nasal Cannula 2.00 12/21/17 08:00 90 12/21/17 04:44 95 Nasal Cannula 2.00 12/21/17 04:36 97.8 87 16 142/70 (94) 95 12/21/17 04:00 83 12/21/17 00:20 97.8 87 18 115/56 (75) 96 12/21/17 00:10 84 12/20/17 21:58 95 12/20/17 21:28 91 12/20/17 20:36 96.3 92 16 121/57 (78) 95 12/20/17 18:43 97.5 82 18 105/50 (68) 95 12/20/17 18:00 114 12/20/17 17:35 93 Nasal Cannula 1.00 12/20/17 17:00 86 12/20/17 16:00 109 12/21/17 12/21/17 12/22/17 15:00 23:00 07:00 Bladder Scan Volume Amount 138 ml # Voids 3 Result Diagram: 12/20/17 0332 12/20/17 0332 Imaging Last Impressions Chest X-Ray 12/21/17 1330 Signed Impressions: Service Date/Time: November 13:35 - CONCLUSION: No pneumothorax status post right lung biopsy. Stable large bilateral pulmonary masses. Degenerative changes and scoliosis of the thoracic spine. Aly Samuel MD Lung Biopsy CT 12/21/17 0000 Signed Impressions: Service Date/Time: November 11:03 - CONCLUSION: Uncomplicated CT guided biopsy. Aly Samuel MD Chest CT 12/17/17 0000 Signed Impressions: Service Date/Time: Sunday, December 17, 2017 23:30 - CONCLUSION: 1. Numerous large lung masses as well as smaller lung nodules characteristic of metastatic disease. Mild mediastinal adenopathy. 2. Small right-sided pleural effusion. 3. Cholelithiasis. Ashu Ugalde MD Objective Remarks GENERAL: This is a well-nourished, well-developed patient, in no apparent distress. CARDIOVASCULAR: Regular rate and rhythm without murmurs, gallops, or rubs. RESPIRATORY: Clear to auscultation. Breath sounds equal bilaterally. No wheezes , rales, or rhonchi. GASTROINTESTINAL: Abdomen soft, non-tender, nondistended. Normal active bowel sounds MUSCULOSKELETAL: Extremities without clubbing, cyanosis, or edema. NEURO: Alert & Oriented x4 to person, place, time, situation. Moves all ext x4 A/P Problem List: (1) Lung mass ICD Codes: R91.8 - Other nonspecific abnormal finding of lung field Plan: - Pt is a 77 y/o WF with hx uterine cancer s/p hysterectomy in 2014, at that time chemo was recommended but patient declined due to holistic ideas. She also had bilateral chronic lymphedema and in 2014 had bilateral DVT and had PE and was on Coumadin for short tome but due to her beliefs this was stopped. - Patient went to ED in [place] on 12/17, with complaints of SOB, weakness, and chronic cough. En route to the ED, in the ambulance, pt went into A. fib and received IV Lopressor. - She had a CXR in the ED which revealed bilateral large pulmonary masses. - She was transferred to [facility] for further management - CT Chest (12/18) --> Numerous large lung masses, measuring up to 7.5cm in the left upper lobe, 7.7cm in the right upper lobe and 10.5 and 6.7cm in the right lower lobe as well as smaller lung nodules characteristic of metastatic disease. Mild mediastinal adenopathy. Small right-sided pleural effusion. - CT guided right lung biopsy obtain (12/19) --> pathology pending. - case d/w pathology, Dr. Ma - 3 large cores were obtained but unfortunately they are necrotic, so NOT diagnostic - Case d/w pt/daughter/family at bedside. - Repeat CT guided right lung biopsy obtain (12/21), await pathology - trial of remeron as appetite stimulant - PT - DVT prophylaxis - supportive care (2) Atrial fibrillation ICD Codes: I48.91 - Unspecified atrial fibrillation Status: Acute Plan: - observe on telemetry - Pt was initially given IV Lopressor - tele: [facility], rate controlled - Cardizem 300mg daily - digoxin .25mg daily - digoxin level 3.8 (12/19), 1.7 (12/20), 1.8 (12/21) (3) Lymphedema ICD Codes: I89.0 - Lymphedema, not elsewhere classified Plan: - Patient has wraps on and we will continue those for now Problem Qualifiers (1) Atrial fibrillation: Qualified Codes: I48.2 - Chronic atrial fibrillation Chan Kaplan DO Dec 21, 2017 15:05
[2017-12-21] MEDS: ENOXAPARIN SODIUM 40 MG/0.4 ML SYRINGE SQ SCH (16:32)
[2017-12-21] MEDS: MIRTAZAPINE 15 MG TAB PO SCH (20:53)
[2017-12-21] MEDS: oxyCODONE/ACETAMINOPHEN 5 MG/325 MG TAB PO PRN (20:56)
[2017-12-22] VITALS (18 sets, daily range): BP systolic 105–136; BP diastolic 54–74; PULSE 78–103; RESP 16–20; TEMP 97.4–98.5; O2SAT 91–95
[2017-12-22] MEDS: oxyCODONE/ACETAMINOPHEN 5 MG/325 MG TAB PO PRN ×2 (07:05→11:58)
[2017-12-22] MEDS: DOCUSATE SODIUM 50 MG/SENNA 8.6 MG TAB PO SCH ×2 (09:00→21:02)
[2017-12-22] MEDS: DILTIAZEM-CD 300 MG CAP ER PO SCH (09:07)
[2017-12-22] MEDS: DIGOXIN 0.125 MG TAB PO SCH (09:07)
[2017-12-22] MEDS: SODIUM CHLORIDE 0.9% FLUSH 10 ML FLUSH IV FLUSH SCH ×2 (09:08→21:02)
--- NOTE | 2017-12-22 15:01 | HHI.PR ---
Subjective Remarks Pt denies pain. Poor PO intake. Pt had only few bites of breakfast and lunch. Pt is drinking supplements that the family is bring from home. Objective Vitals Vital Signs Date Time Temp Pulse Resp B/P (MAP) Pulse Ox O2 Delivery O2 Flow Rate FiO2 12/22/17 11:45 97.5 92 16 107/63 (78) 92 12/22/17 07:10 97.4 95 16 109/54 (72) 91 12/22/17 06:00 100 12/22/17 05:30 97.6 103 18 133/71 (91) 94 12/22/17 05:00 88 12/22/17 04:00 91 12/22/17 03:00 92 12/22/17 02:47 94 12/22/17 02:00 78 12/22/17 01:00 78 12/22/17 00:27 97.8 81 20 107/59 (75) 93 12/22/17 00:06 80 12/22/17 00:00 78 12/21/17 23:00 80 12/21/17 22:00 80 12/21/17 21:24 94 Nasal Cannula 2.00 12/21/17 21:00 90 12/21/17 20:56 94 Nasal Cannula 2.00 12/21/17 20:47 97.6 90 18 124/65 (84) 96 12/21/17 20:21 92 12/21/17 19:00 86 12/21/17 16:45 98.2 89 18 116/62 (80) 94 Result Diagram: 12/20/17 0332 12/20/17 0332 Imaging Last Impressions Chest X-Ray 12/21/17 1330 Signed Impressions: Service Date/Time: November 13:35 - CONCLUSION: No pneumothorax status post right lung biopsy. Stable large bilateral pulmonary masses. Degenerative changes and scoliosis of the thoracic spine. Aly Samuel MD Lung Biopsy CT 12/21/17 0000 Signed Impressions: Service Date/Time: November 11:03 - CONCLUSION: Uncomplicated CT guided biopsy. Aly Samuel MD Chest CT 12/17/17 0000 Signed Impressions: Service Date/Time: Sunday, December 17, 2017 23:30 - CONCLUSION: 1. Numerous large lung masses as well as smaller lung nodules characteristic of metastatic disease. Mild mediastinal adenopathy. 2. Small right-sided pleural effusion. 3. Cholelithiasis. Ashu Ugalde MD Objective Remarks GENERAL: This is a well-nourished, well-developed patient, in no apparent distress. CARDIOVASCULAR: Regular rate and rhythm without murmurs, gallops, or rubs. RESPIRATORY: Clear to auscultation. Breath sounds equal bilaterally. No wheezes , rales, or rhonchi. GASTROINTESTINAL: Abdomen soft, non-tender, nondistended. Normal active bowel sounds MUSCULOSKELETAL: Extremities without clubbing, cyanosis, or edema. NEURO: Alert & Oriented x4 to person, place, time, situation. Moves all ext x4 A/P Problem List: (1) Lung mass ICD Codes: R91.8 - Other nonspecific abnormal finding of lung field Plan: - Pt is a 77 y/o WF with hx uterine cancer s/p hysterectomy in 2014, at that time chemo was recommended but patient declined due to holistic ideas. She also had bilateral chronic lymphedema and in 2014 had bilateral DVT and had PE and was on Coumadin for short tome but due to her beliefs this was stopped. - Patient went to ED in [place] on 12/17, with complaints of SOB, weakness, and chronic cough. En route to the ED, in the ambulance, pt went into A. fib and received IV Lopressor. - She had a CXR in the ED which revealed bilateral large pulmonary masses. - She was transferred to [facility] for further management - CT Chest (12/18) --> Numerous large lung masses, measuring up to 7.5cm in the left upper lobe, 7.7cm in the right upper lobe and 10.5 and 6.7cm in the right lower lobe as well as smaller lung nodules characteristic of metastatic disease. Mild mediastinal adenopathy. Small right-sided pleural effusion. - CT guided right lung biopsy obtain (12/19) --> pathology pending. - case d/w pathology, Dr. Ma - 3 large cores were obtained but unfortunately they are necrotic, so NOT diagnostic - Case d/w pt/daughter/family at bedside. - Repeat CT guided right lung biopsy obtain (12/21) - inflammatory lung tissue, necrotic tissue, non-diagnostic - Obtain CT abd/pelvis - evaluate for for other lesions/primary source for possible biopsy - Pt refuses contrast study - Consider biopsy of abd/pelvic lesions if identified - Consider VATS procedure to obtain larger sample from Pulmonary mass. - remeron - PT - DVT prophylaxis - supportive care - I met with pt and daughters at the bedside. Current w/u and plan were discussed in detail. All questions were answered to the best of my ability. (2) Atrial fibrillation ICD Codes: I48.91 - Unspecified atrial fibrillation Status: Acute Plan: - observe on telemetry - Pt was initially given IV Lopressor - tele: A. Fib, rate controlled - Cardizem 300mg daily - digoxin .25mg daily - digoxin level 3.8 (12/19), 1.7 (12/20), 1.8 (12/21) (3) Lymphedema ICD Codes: I89.0 - Lymphedema, not elsewhere classified Plan: - Patient has wraps on and we will continue those for now Problem Qualifiers (1) Atrial fibrillation: Qualified Codes: I48.2 - Chronic atrial fibrillation Chan Kaplan DO Dec 22, 2017 15:01
--- NOTE | 2017-12-22 18:03 | RADRPT ---
EXAM DATE/TIME: 12/22/2017 16:16 [facility] COMPARISON: No previous studies available for comparison. INDICATIONS : Evaluate mass. ORAL CONTRAST: No oral contrast ingested. RADIATION DOSE: 10.49 CTDIvol (mGy) MEDICAL HISTORY : Uterine cancer, pulmonary nodues. SURGICAL HISTORY : Hysterectomy. ENCOUNTER: Initial ACUITY: 1 day PAIN SCALE: 0/10 LOCATION: Abdomen TECHNIQUE: Volumetric scanning of the abdomen and pelvis was performed. Using automated exposure control and ad justment of the mA and/or kV according to patient size, radiation dose was kept as low as reasonably achievable to obtain optimal diagnostic quality images. DICOM format image data is available electro nically for review and comparison. FINDINGS: LOWER LUNGS: Large masses in the right lower lobe abdomen through see biopsied.. LIVER: Homogeneous density without lesion. There is no dilation of the biliary tree. Large gallstones witho ut wall thickening. SPLEEN: Normal size without lesion. PANCREAS: Within normal limits. KIDNEYS: Staghorn calculus within the right kidney . Question of air within the right renal collecting system of uncertain etiology Normal in size and shape. There is no mass, stone, or hydronephrosis. ADRENAL GLANDS: Within normal limits. VASCULAR: There is no aortic aneurysm. IVC filter in place BOWEL/MESENTERY: The stomach, small bowel, and colon demonstrate no acute abnormality. There is no free intraperitone al air or fluid. ABDOMINAL WALL: Small on the local hernia with loop of small bowel within it without evidence of obstruction. RETROPERITONEUM: There is no lymphadenopathy. BLADDER: No wall thickening or mass however there is some air within the bladder. 7.7 x 7.3 cm soft tissue mas s posterior to the bladder REPRODUCTIVE: Within normal limits. INGUINAL: There is no lymphadenopathy or hernia. MUSCULOSKELETAL: Within normal limits for patient age. CONCLUSION: Multiple known pulmonary lung masses in the right lung base. Multiple gallstones in a noninflamed gal lbladder. Staghorn calculus right kidney with some additional air in the bladder. Large mass posterior to the bladder measuring 7.7 x 7.3 cm across. Jason Escudero MD on December 22, 2017 at 17:57 Board Certified Radiologist. This report was verified electronically.
[2017-12-22] MEDS: ENOXAPARIN SODIUM 40 MG/0.4 ML SYRINGE SQ SCH (19:12)
[2017-12-22] MEDS: MIRTAZAPINE 15 MG TAB PO SCH (21:00)
[2017-12-23] VITALS (16 sets, daily range): BP systolic 102–139; BP diastolic 50–74; PULSE 74–104; RESP 14–18; TEMP 97.5–98.5; O2SAT 93–95
[2017-12-23] MEDS: DOCUSATE SODIUM 50 MG/SENNA 8.6 MG TAB PO SCH ×2 (08:41→20:00)
[2017-12-23] MEDS: SODIUM CHLORIDE 0.9% FLUSH 10 ML FLUSH IV FLUSH SCH ×2 (08:41→20:02)
[2017-12-23] MEDS: DIGOXIN 0.125 MG TAB PO SCH (08:41)
[2017-12-23] MEDS: oxyCODONE/ACETAMINOPHEN 5 MG/325 MG TAB PO PRN (08:42)
[2017-12-23] MEDS: DILTIAZEM-CD 300 MG CAP ER PO SCH (08:42)
--- NOTE | 2017-12-23 17:12 | HHI.PR ---
Subjective Remarks No new complaints. Objective Vitals Vital Signs Date Time Temp Pulse Resp B/P (MAP) Pulse Ox O2 Delivery O2 Flow Rate FiO2 12/23/17 15:16 97.8 84 18 129/64 (85) 94 12/23/17 15:00 79 12/23/17 11:37 94 Nasal Cannula 2.00 12/23/17 11:02 98.5 77 18 126/60 (82) 95 12/23/17 11:00 77 12/23/17 08:23 93 Nasal Cannula 2.00 12/23/17 08:08 97.9 87 18 123/56 (78) 93 12/23/17 07:00 76 12/23/17 04:00 97.5 82 16 102/50 (67) 94 12/23/17 04:00 74 12/23/17 00:00 78 12/23/17 00:00 98.2 89 14 111/66 (81) 94 12/22/17 20:00 Nasal Cannula 2.00 12/22/17 20:00 98.5 92 16 136/74 (94) 95 12/22/17 20:00 98.5 12/22/17 20:00 90 12/22/17 18:13 91 Nasal Cannula 2.00 Result Diagram: 12/20/17 0332 12/20/17 0332 Imaging Last Impressions Abdomen/Pelvis CT 12/22/17 0000 Signed Impressions: Service Date/Time: Friday, December 22, 2017 16:16 - CONCLUSION: Multiple known pulmonary lung masses in the right lung base. Multiple gallstones in a noninflamed gallbladder. Staghorn calculus right kidney with some additional air in the bladder. Large mass posterior to the bladder measuring 7.7 x 7.3 cm across. Jason Escudero MD Chest X-Ray 12/21/17 1330 Signed Impressions: Service Date/Time: November 13:35 - CONCLUSION: No pneumothorax status post right lung biopsy. Stable large bilateral pulmonary masses. Degenerative changes and scoliosis of the thoracic spine. Aly Samuel MD Lung Biopsy CT 12/21/17 0000 Signed Impressions: Service Date/Time: November 11:03 - CONCLUSION: Uncomplicated CT guided biopsy. Aly Samuel MD Chest CT 12/17/17 0000 Signed Impressions: Service Date/Time: Sunday, December 17, 2017 23:30 - CONCLUSION: 1. Numerous large lung masses as well as smaller lung nodules characteristic of metastatic disease. Mild mediastinal adenopathy. 2. Small right-sided pleural effusion. 3. Cholelithiasis. Ashu Ugalde MD Objective Remarks GENERAL: This is a well-nourished, well-developed patient, in no apparent distress. CARDIOVASCULAR: Regular rate and rhythm without murmurs, gallops, or rubs. RESPIRATORY: Clear to auscultation. Breath sounds equal bilaterally. No wheezes , rales, or rhonchi. GASTROINTESTINAL: Abdomen soft, non-tender, nondistended. Normal active bowel sounds MUSCULOSKELETAL: Extremities without clubbing, cyanosis, or edema. NEURO: Alert & Oriented x4 to person, place, time, situation. Moves all ext x4 A/P Problem List: (1) Lung mass ICD Codes: R91.8 - Other nonspecific abnormal finding of lung field Plan: - Pt is a 77 y/o WF with hx uterine cancer s/p hysterectomy in 2014, at that time chemo was recommended but patient declined due to holistic ideas. She also had bilateral chronic lymphedema and in 2014 had bilateral DVT and had PE and was on Coumadin for short tome but due to her beliefs this was stopped. - Patient went to ED in [place] on 12/17, with complaints of SOB, weakness, and chronic cough. En route to the ED, in the ambulance, pt went into A. fib and received IV Lopressor. - She had a CXR in the ED which revealed bilateral large pulmonary masses. - She was transferred to [facility] for further management - CT Chest (12/18) --> Numerous large lung masses, measuring up to 7.5cm in the left upper lobe, 7.7cm in the right upper lobe and 10.5 and 6.7cm in the right lower lobe as well as smaller lung nodules characteristic of metastatic disease. Mild mediastinal adenopathy. Small right-sided pleural effusion. - CT guided right lung biopsy obtain (12/19) --> pathology pending. - case d/w pathology, Dr. Ma - 3 large cores were obtained but unfortunately they are necrotic, so NOT diagnostic - Case d/w pt/daughter/family at bedside. - Repeat CT guided right lung biopsy obtain (12/21) - inflammatory lung tissue, necrotic tissue, non-diagnostic - CT abd/pelvis (12/22/17) - Multiple known pulmonary lung masses in the right lung base. - Large mass posterior to the bladder measuring 7.7 x 7.3 cm across. - Case d/w pt/family at bedside. Pt/family NOT sure if they want to pursue CT guided Bx of pelvic mass - Consider VATS procedure to obtain larger sample from Pulmonary mass, if BX of pelvic mass is also non-diagnostic - remeron - PT - DVT prophylaxis - supportive care - I met with pt and daughters at the bedside (12/23). Current w/u and plan were discussed in detail. All questions were answered to the best of my ability. (2) Atrial fibrillation ICD Codes: I48.91 - Unspecified atrial fibrillation Status: Acute Plan: - observe on telemetry - IV Lopressor prn - tele: A. Fib, rate controlled - Cardizem 300mg daily - digoxin .25mg daily - digoxin level 3.8 (12/19), 1.7 (12/20), 1.8 (12/21) (3) Lymphedema ICD Codes: I89.0 - Lymphedema, not elsewhere classified Plan: - Patient has wraps on and we will continue those for now Problem Qualifiers (1) Atrial fibrillation: Qualified Codes: I48.2 - Chronic atrial fibrillation Chan Kaplan DO Dec 23, 2017 17:12
[2017-12-23] MEDS: ENOXAPARIN SODIUM 40 MG/0.4 ML SYRINGE SQ SCH (17:58)
[2017-12-23] MEDS: MIRTAZAPINE 15 MG TAB PO SCH (20:01)
[2017-12-24] VITALS (23 sets, daily range): BP systolic 116–133; BP diastolic 54–85; PULSE 70–98; RESP 18; TEMP 97.5–98.6; O2SAT 93–97
[2017-12-24] MEDS: oxyCODONE/ACETAMINOPHEN 5 MG/325 MG TAB PO PRN (00:24)
[2017-12-24] MEDS: DILTIAZEM-CD 300 MG CAP ER PO SCH (09:19)
[2017-12-24] MEDS: DIGOXIN 0.125 MG TAB PO SCH (09:19)
[2017-12-24] MEDS: DOCUSATE SODIUM 50 MG/SENNA 8.6 MG TAB PO SCH ×2 (09:19→20:36)
[2017-12-24] MEDS: SODIUM CHLORIDE 0.9% FLUSH 10 ML FLUSH IV FLUSH SCH ×2 (09:19→20:37)
[2017-12-24] MEDS: LACTULOSE SYRUP 20 GM/30 ML CUP PO PRN (09:19)
--- NOTE | 2017-12-24 13:33 | HHI.PR ---
Subjective Remarks No new complaints. Pt's PO intake remains poor. Pt did tolerate some oatmeal for breakfast. Objective Vitals Vital Signs Date Time Temp Pulse Resp B/P (MAP) Pulse Ox O2 Delivery O2 Flow Rate FiO2 12/24/17 11:40 97.8 98 18 122/78 (93) 95 12/24/17 11:00 93 12/24/17 09:44 94 Nasal Cannula 1.50 12/24/17 09:21 92 Nasal Cannula 1.50 12/24/17 08:31 94 Nasal Cannula 1.50 12/24/17 08:26 97.7 83 18 129/66 (87) 94 12/24/17 07:00 70 12/24/17 06:00 82 12/24/17 05:00 76 12/24/17 04:03 85 12/24/17 04:00 86 12/24/17 04:00 97.6 90 18 116/54 (74) 94 12/24/17 03:00 86 12/24/17 02:00 88 12/24/17 01:00 88 12/24/17 00:18 98.3 95 18 128/63 (84) 94 12/24/17 00:09 90 12/24/17 00:00 94 Nasal Cannula 2.00 12/23/17 23:00 88 12/23/17 22:00 84 12/23/17 21:00 92 12/23/17 20:03 97.8 104 18 139/74 (95) 94 12/23/17 20:01 88 12/23/17 20:00 94 Nasal Cannula 2.00 12/23/17 19:00 79 12/23/17 17:26 94 Nasal Cannula 2.00 12/23/17 15:16 97.8 84 18 129/64 (85) 94 12/23/17 15:00 79 Result Diagram: 12/20/17 0332 12/20/17 0332 Imaging Last Impressions Abdomen/Pelvis CT 12/22/17 0000 Signed Impressions: Service Date/Time: Friday, December 22, 2017 16:16 - CONCLUSION: Multiple known pulmonary lung masses in the right lung base. Multiple gallstones in a noninflamed gallbladder. Staghorn calculus right kidney with some additional air in the bladder. Large mass posterior to the bladder measuring 7.7 x 7.3 cm across. Jason Escudero MD Chest X-Ray 12/21/17 1330 Signed Impressions: Service Date/Time: November 13:35 - CONCLUSION: No pneumothorax status post right lung biopsy. Stable large bilateral pulmonary masses. Degenerative changes and scoliosis of the thoracic spine. Aly Samuel MD Lung Biopsy CT 12/21/17 0000 Signed Impressions: Service Date/Time: November 11:03 - CONCLUSION: Uncomplicated CT guided biopsy. Aly Samuel MD Chest CT 12/17/17 0000 Signed Impressions: Service Date/Time: Sunday, December 17, 2017 23:30 - CONCLUSION: 1. Numerous large lung masses as well as smaller lung nodules characteristic of metastatic disease. Mild mediastinal adenopathy. 2. Small right-sided pleural effusion. 3. Cholelithiasis. Ashu Ugalde MD Objective Remarks GENERAL: This is a well-nourished, well-developed patient, in no apparent distress. CARDIOVASCULAR: Regular rate and rhythm without murmurs, gallops, or rubs. RESPIRATORY: Clear to auscultation. Breath sounds equal bilaterally. No wheezes , rales, or rhonchi. GASTROINTESTINAL: Abdomen soft, non-tender, nondistended. Normal active bowel sounds MUSCULOSKELETAL: Extremities without clubbing, cyanosis, or edema. NEURO: Alert & Oriented x4 to person, place, time, situation. Moves all ext x4 A/P Problem List: (1) Lung mass ICD Codes: R91.8 - Other nonspecific abnormal finding of lung field Plan: - Pt is a 77 y/o WF with hx uterine cancer s/p hysterectomy in 2014, at that time chemo was recommended but patient declined due to holistic ideas. She also had bilateral chronic lymphedema and in 2014 had bilateral DVT and had PE and was on Coumadin for short tome but due to her beliefs this was stopped. - Patient went to ED in [place] on 12/17, with complaints of SOB, weakness, and chronic cough. En route to the ED, in the ambulance, pt went into A. fib and received IV Lopressor. - She had a CXR in the ED which revealed bilateral large pulmonary masses. - She was transferred to [facility] for further management - CT Chest (12/18) --> Numerous large lung masses, measuring up to 7.5cm in the left upper lobe, 7.7cm in the right upper lobe and 10.5 and 6.7cm in the right lower lobe as well as smaller lung nodules characteristic of metastatic disease. Mild mediastinal adenopathy. Small right-sided pleural effusion. - CT guided right lung biopsy obtain (12/19) --> pathology pending. - case d/w pathology, Dr. Ma - 3 large cores were obtained but unfortunately they are necrotic, so NOT diagnostic - Case d/w pt/daughter/family at bedside. - Repeat CT guided right lung biopsy obtain (12/21) - inflammatory lung tissue, necrotic tissue, non-diagnostic - CT abd/pelvis (12/22/17) - Multiple known pulmonary lung masses in the right lung base. - Large mass posterior to the bladder measuring 7.7 x 7.3 cm across. - Case d/w pt/family at bedside (12/24). Pt/family now agree to proceed with CT guided Bx of pelvic mass in continued attempt to obtain tissue diagnosis. - If this 3rd biopsy proves NOT to be diagnostic, the family is NOT certain if they wish to proceed to with VATS procedure. - Case d/w Dr. Tori Christina (12/24/17). He will consult to explain what VATS Bx would entail it pt family decided to proceed - if CT BX of pelvic mass fails. - NPO after MN for CT guided Bx of pelvic mass (12/25) - repeat labs in AM - remeron - PT - DVT prophylaxis - supportive care - I met with pt and daughters at the bedside (12/24). Current w/u and plan were discussed in detail. All questions were answered to the best of my ability. - Will request Palliative Consult for clarification of goals. (2) Atrial fibrillation ICD Codes: I48.91 - Unspecified atrial fibrillation Status: Acute Plan: - observe on telemetry - IV Lopressor prn - tele: A. Fib, rate controlled - Cardizem 300mg daily - digoxin .25mg daily - digoxin level 3.8 (12/19), 1.7 (12/20), 1.8 (12/21) (3) Lymphedema ICD Codes: I89.0 - Lymphedema, not elsewhere classified Plan: - Patient has wraps on and we will continue those for now Problem Qualifiers (1) Atrial fibrillation: Qualified Codes: I48.2 - Chronic atrial fibrillation Chan Kaplan DO Dec 24, 2017 13:33
[2017-12-24] MEDS: ENOXAPARIN SODIUM 40 MG/0.4 ML SYRINGE SQ SCH (18:35)
[2017-12-24] MEDS: MIRTAZAPINE 15 MG TAB PO SCH (20:36)
[2017-12-25] VITALS (26 sets, daily range): BP systolic 124–160; BP diastolic 44–66; PULSE 81–107; RESP 16–20; TEMP 97.6–98.4; O2SAT 92–95
[2017-12-25 06:42] LABS: AUTOMATED NEUTROPHIL # 8.4 TH/MM3 (1.8-7.7); BASOPHIL % 0.4 % (0.0-2.0); EOSINOPHIL # 0.1 TH/MM3 (0-0.4); HEMATOCRIT 32.9 % (35.0-46.0); HEMOGLOBIN 10.3 GM/DL (11.6-15.3); LYMPH % 5.2 % (9.0-44.0); LYMPHOCYTE # 0.5 TH/MM3 (1.0-4.8); MEAN CELL VOLUME 82.3 FL (80.0-100.0); MEAN CORPUSCULAR HEMOGLOBIN 25.8 PG (27.0-34.0); MEAN CORPUSCULAR HGB CONC 31.4 % (32.0-36.0); MEAN PLATELET VOLUME 7.4 FL (7.0-11.0); MONO % 9.9 % (0.0-8.0); NEUT % 83.5 % (16.0-70.0); PLATELET COUNT 395 TH/MM3 (150-450); RED CELL DISTRIBUTION WIDTH 19.5 % (11.6-17.2)
[2017-12-25 06:53] LABS: INTERNATIONAL NORMALIZED RATIO 1.2 RATIO; PROTHROMBIN TIME - PATIENT 12.2 SEC (9.8-11.6)
[2017-12-25 07:11] LABS: BICARBONATE 28.7 MEQ/L (21.0-32.0); CALCIUM 9.7 MG/DL (8.5-10.1); CREATININE 0.91 MG/DL (0.50-1.00); MAGNESIUM 1.9 MG/DL (1.5-2.5)
[2017-12-25 07:25] LABS: DIGOXIN 1.6 NG/ML (0.8-2.0)
[2017-12-25] MEDS: LACTULOSE SYRUP 20 GM/30 ML CUP PO PRN (08:46)
[2017-12-25] MEDS: oxyCODONE/ACETAMINOPHEN 5 MG/325 MG TAB PO PRN ×2 (08:46→12:50)
[2017-12-25] MEDS: DILTIAZEM-CD 300 MG CAP ER PO SCH (08:46)
[2017-12-25] MEDS: DIGOXIN 0.125 MG TAB PO SCH (08:46)
[2017-12-25] MEDS: DOCUSATE SODIUM 50 MG/SENNA 8.6 MG TAB PO SCH ×2 (08:46→21:00)
[2017-12-25] MEDS: SODIUM CHLORIDE 0.9% FLUSH 10 ML FLUSH IV FLUSH SCH ×2 (08:59→21:30)
[2017-12-25] MEDS ORDERED: MIDAZOLAM HCL 5 MG/5 ML VIAL ONE (09:21)
[2017-12-25] MEDS ORDERED: fentaNYL CITRATE 250 MCG/5 ML AMP ONE (09:21)
--- NOTE | 2017-12-25 09:31 | HHI.PR ---
Subjective Remarks pt w/out complaints Objective Vitals nad oriented heart reg lung cta abd s/nt ext no edema Vital Signs Date Time Temp Pulse Resp B/P (MAP) Pulse Ox O2 Delivery O2 Flow Rate FiO2 12/25/17 06:04 88 12/25/17 05:05 87 12/25/17 04:40 98.4 88 16 132/65 (87) 94 12/25/17 04:04 87 12/25/17 03:01 91 12/25/17 02:00 85 12/25/17 01:05 86 12/25/17 00:11 97.9 89 16 131/64 (86) 95 12/25/17 00:10 Nasal Cannula 1.50 12/25/17 00:02 88 12/24/17 23:00 86 12/24/17 22:00 87 12/24/17 21:10 88 12/24/17 20:20 98.6 86 18 129/85 (100) 93 12/24/17 20:03 87 12/24/17 19:02 90 12/24/17 17:13 95 Nasal Cannula 1.50 12/24/17 15:42 97.5 80 18 126/57 (80) 95 12/24/17 15:00 79 12/24/17 11:40 97.8 98 18 122/78 (93) 95 12/24/17 11:00 93 12/24/17 09:44 94 Nasal Cannula 1.50 Result Diagram: 12/25/17 0617 12/25/17 0617 Imaging Last Impressions Abdomen/Pelvis CT 12/22/17 0000 Signed Impressions: Service Date/Time: Friday, December 22, 2017 16:16 - CONCLUSION: Multiple known pulmonary lung masses in the right lung base. Multiple gallstones in a noninflamed gallbladder. Staghorn calculus right kidney with some additional air in the bladder. Large mass posterior to the bladder measuring 7.7 x 7.3 cm across. Jason Escudero MD Chest X-Ray 12/21/17 1330 Signed Impressions: Service Date/Time: November 13:35 - CONCLUSION: No pneumothorax status post right lung biopsy. Stable large bilateral pulmonary masses. Degenerative changes and scoliosis of the thoracic spine. Aly Samuel MD Lung Biopsy CT 12/21/17 0000 Signed Impressions: Service Date/Time: November 11:03 - CONCLUSION: Uncomplicated CT guided biopsy. Aly Samuel MD Chest CT 12/17/17 0000 Signed Impressions: Service Date/Time: Sunday, December 17, 2017 23:30 - CONCLUSION: 1. Numerous large lung masses as well as smaller lung nodules characteristic of metastatic disease. Mild mediastinal adenopathy. 2. Small right-sided pleural effusion. 3. Cholelithiasis. Ashu Ugalde MD A/P Problem List: (1) Lung mass ICD Codes: R91.8 - Other nonspecific abnormal finding of lung field Status: Acute Plan: - Pt is a 77 y/o WF with hx uterine cancer s/p hysterectomy in 2014, at that time chemo was recommended but patient declined due to holistic ideas. She also had bilateral chronic lymphedema and in 2014 had bilateral DVT and had PE and was on Coumadin for short tome but due to her beliefs this was stopped. - Patient went to ED in [place] on 12/17, with complaints of SOB, weakness, and chronic cough. En route to the ED, in the ambulance, pt went into A. fib and received IV Lopressor. - She had a CXR in the ED which revealed bilateral large pulmonary masses. - She was transferred [facility] for [facility] management - CT Chest (12/18) --> Numerous large lung masses, measuring up to 7.5cm in the left upper lobe, 7.7cm in the right upper lobe and 10.5 and 6.7cm in the right lower lobe as well as smaller lung nodules characteristic of metastatic disease. Mild mediastinal adenopathy. Small right-sided pleural effusion. - CT guided right lung biopsy obtain (12/19) --> pathology pending. - case d/w pathology, Dr. Ma - 3 large cores were obtained but unfortunately they are necrotic, so NOT diagnostic - Case d/w pt/daughter/family at bedside. - Repeat CT guided right lung biopsy obtain (12/21) - inflammatory lung tissue, necrotic tissue, non-diagnostic - CT abd/pelvis (12/22/17) - Multiple known pulmonary lung masses in the right lung base. - Large mass posterior to the bladder measuring 7.7 x 7.3 cm across. - Case d/w pt/family at bedside (12/24). Pt/family now agree to proceed with CT guided Bx of pelvic mass in continued attempt to obtain tissue diagnosis. - If this 3rd biopsy proves NOT to be diagnostic, the family is NOT certain if they wish to proceed to with VATS procedure. - Dr Kaplan met with pt and daughters at the bedside (12/24). Current w/u and plan were discussed in detail. - Palliative care to meet with family. I discussed at length today with pt and her son. Pt says she wants the biopsy and is interested to know the tissue diagnosis. At this time she is clearly against any kind of chemotherapy that would be offered. I see no surgical cure/ option. Pt says she would just use holistic methods. I discussed hospice and comfort care. She was not interested in life support measures. She is also refusing snf. So after the bx result plan for d/c home with family. (2) Atrial fibrillation ICD Codes: I48.91 - Unspecified atrial fibrillation Status: Acute Plan: - observe on telemetry - IV Lopressor prn - tele: A. Fib, rate controlled - Cardizem 300mg daily - digoxin .25mg daily - digoxin level 3.8 (12/19), 1.7 (12/20), 1.8 (12/21) (3) Lymphedema ICD Codes: I89.0 - Lymphedema, not elsewhere classified Plan: - Patient has wraps on and we will continue those for now Problem Qualifiers (1) Atrial fibrillation: Qualified Codes: I48.2 - Chronic atrial fibrillation Gabriele Arias MD Dec 25, 2017 09:31
--- NOTE | 2017-12-25 09:41 | PD.CONS ---
Consult Service Palliative Care Consult Requested By Dr. Kaplan Reason for Consultation a. To assist with evaluation and management of symptoms including:pain and weakness b. To assist medical decision maker(s) with: better understanding of current medical conditions; weighing benefits/burdens of medical treatment options; making medical treatment decisions. HPI History of Present Illness Patient is a 77-year-old with a who has a past medical history of DVT & PE(who was on Coumadin for short time but was stopped due to holistic preference), and uterine cancer status post hysterectomy in 2014 (at the time patient declined chemotherapy due to holistic preference) came in to the hospital on 12/17/2017 with shortness of breath, weakness and cough. Upon arrival by EMS, she was found to be in A. fib with RVR at a rate of 157. Patient converted to sinus tachycardia on the way to the hospital. In the ER: * Temperature is 97.7, pulse is 130, respirations 22, blood pressure is 145/95, pulse ox is 98% * WBC 16.6, hemoglobin is 12.0, hematocrit 40.3, platelets 19.0 * Sodium is 140, potassium is 4.3, chloride is 102, bicarb is 26.0, BUN is 20, creatinine 0.90 * Albumin level is 2.0, troponin is less than 0.02, total CK is 21. * Chest CT shows numerous large lung masses as well as smaller lung nodules characteristic of metastatic disease. There is mild mediastinal adenopathy. Small right-sided pleural effusion. Cholelithiasis. * Bilateral large pulmonary masses. Probable associated with small pleural effusion. Patient was admitted to hospitalist services. Patient was initially given IV Lopressor and still has intermittent A. fib with RVR. Patient started on Cardizem and telemetry. Patient was transported to Hospital [facility] 12/18/2016-patient was started on IV Digoxin for A. fib. Biopsy was recommended to evaluate for lung masses. 12/19/2016-patient underwent biopsy of lung mass by interventional radiology. Biopsy consists of sizable core tissues which are entirely necrotic. There are scattered clusters filamentous bacteria in the necrotic debris. Is unclear whether this represents infectious or tumor necrosis. Digoxin level was checked and was 3.8 12/20/2016-patient's intake remains poor. Remeron was started as an appetite stimulant. 12/21/[address]-guided right side lung biopsy was performed. Pathology has come back again this shows extensive necrosis and adjacent pulmonary parenchyma with chronic inflammation, interstitial fibrosis and typical 6-year-old woman lining cells. Definitive malignancy is not identified. 12/22/2017-CT of abdomen and pelvis shows: Multiple known pulmonary masses in the right lung base. Multiple gallstones. Large mass posterior to the bladder measuring 7.7 x 7.3 cm across. 12/23-12/14--patient's p.o. intake remains poor tolerated some oatmeal for breakfast. Patient's 2 daughter at bedside. Palliative care was consulted to review goals of care. In summary: 77-year-old female that was brought to the hospital for weakness and shortness of breath. Chest x-ray shows bilateral large pulmonary masses. A 7.710.0 cm mass in the left upper lobe. There is 8.16.3 cm mass in the right upper lobe. An additional 9 x 7 cm mass in the right perihilar region. Chest CT shows numerous large lung masses as well as smaller lung nodules characteristic of metastatic disease. Patient underwent diagnostic lung biopsy via interventional radiology and both times shows necrotic tissue and it was indeterminate in regards to malignancy. However abdominal pelvic CT on 2017 shows multiple pulmonary lung masses in the right lung base and also an additional large mass posterior to the bladder measuring 7.7 x 7.3 cm. patient' s condition is also complicated by poor appetite for an albumin of 1.9, A. fib with RVR. Patietnt on my visit endorse abdominal pain. She rates it at 4/10. Say it is like a pressure. Could not really characterize it more. She thinks it is just all the tranfer from bed to table for imaging and biopsy that caused this pain. She did endorse percocet was effective. She has not have a BM since admission per pt and family. She endorse fatigued/weakness, and decrease in appetite. She denies falling from weakness. Weakness is generalized. Spend on excess 45 min with patient and pt's 2 daughter review pt's clinical course. Review different scenario in terms of possible/and likely cancer diagnosis. == They would like to continue to parse workup and find out what current biopsy is. == Patient and family at the current time is not thinking of hospice or comfort measures only. This was gently explored but they are not ready yet at this point, without knowing more information. == Patient code status is full code. She did say "If I was just like a pumpkin " she would not prolong ventilation or life support. We went over the risk and benefit of intubation, cpr, compression especially in cancer setting. Pt at this point would like to speak more with family. Pt at this point is full code. Function/Cognitive Trajectory Getting progressively weaker, decrease appetite. Have not fallen. Increase groin pain. Review of Systems ROS Limitations: Clinical Condition Constitutional: COMPLAINS OF: Fatigue Eyes: DENIES: Diplopia Respiratory: COMPLAINS OF: Shortness of breath Cardiovascular: COMPLAINS OF: Dyspnea on Exertion Gastrointestinal: COMPLAINS OF: Abdominal pain Genitourinary: DENIES: Dysuria Hematologic/Lymphatics: DENIES: Lymphadenopathy Psychiatric: DENIES: Depression Past Family Social History Coded Allergies: iron (Verified Allergy, Unknown, 12/17/17) LIQUID ONLY Past Medical History DVT pe uterine cancer (decline chemotherapy at the time) Past Surgical History hysterectomy IVC filter for DVT Reported Medications none. Holistic regimen Current Medications Medications (Trade) Dose Ordered Sig/Keshawn Route Start Time Stop Time Status Last Admin (NS Flush) 2 ml UNSCH PRN IV FLUSH 12/17/17 19:45 (NS Flush) 2 ml BID IV FLUSH 12/17/17 21:00 12/25/17 08:59 (Tylenol) 650 mg Q4H PRN PO 12/17/17 19:45 (Zofran Inj) 4 mg Q6H PRN IVP 12/17/17 19:45 (Restoril) 15 mg HS PRN PO 12/17/17 19:45 (Narcan Inj) 0.4 mg UNSCH PRN IV PUSH 12/17/17 19:45 (Wendy-Colace) 1 tab BID PO 12/17/17 21:00 12/25/17 08:46 (Milk Of Magnesia Liq) 30 ml Q12H PRN PO 12/17/17 19:45 (Senokot) 17.2 mg Q12H PRN PO 12/17/17 19:45 12/25/17 08:45 (Dulcolax Supp) 10 mg DAILY PRN RECTAL 12/17/17 19:45 (Lactulose Liq) 30 ml DAILY PRN PO 12/17/17 19:45 12/25/17 08:46 (Lopressor Inj) 5 mg Q5M PRN IV PUSH 12/17/17 21:30 12/18/17 09:04 (Percocet 5-325 Mg) 1 tab Q4H PRN PO 12/19/17 10:15 12/25/17 08:46 (Lovenox Inj) 40 mg Q24H SQ 12/19/17 19:00 12/23/17 17:58 (Remeron) 30 mg HS PO 12/19/17 21:00 12/24/17 20:36 (Lanoxin) 0.125 mg DAILY PO 12/21/17 09:00 12/25/17 08:46 (Cardizem Cd) 300 mg DAILY PO 12/20/17 12:05 12/25/17 08:46 Substance Use Tobacco:does not smoke Alcohol:no Prescription med abuse:no Illicits:no Psychosocial History Patient is , ex past away. She is originally from [place]. Have 2 daughters 1 son, 1 daughter in law. Worked in sales. Spiritual/Cultural Factors She endorse she is spiritual. Living Will: Never completed Health Care Surrogate: Never completed Durable Power of Turn Laster: Never completed Physical Exam Vital Signs Date Time Temp Pulse Resp B/P (MAP) Pulse Ox O2 Delivery O2 Flow Rate FiO2 12/25/17 06:04 88 12/25/17 05:05 87 12/25/17 04:40 98.4 88 16 132/65 (87) 94 12/25/17 04:04 87 12/25/17 03:01 91 12/25/17 02:00 85 12/25/17 01:05 86 12/25/17 00:11 97.9 89 16 131/64 (86) 95 12/25/17 00:10 Nasal Cannula 1.50 12/25/17 00:02 88 12/24/17 23:00 86 12/24/17 22:00 87 12/24/17 21:10 88 12/24/17 20:20 98.6 86 18 129/85 (100) 93 12/24/17 20:03 87 12/24/17 19:02 90 12/24/17 17:13 95 Nasal Cannula 1.50 12/24/17 15:42 97.5 80 18 126/57 (80) 95 12/24/17 15:00 79 12/24/17 11:40 97.8 98 18 122/78 (93) 95 12/24/17 11:00 93 12/24/17 09:44 94 Nasal Cannula 1.50 12/24/17 09:21 92 Nasal Cannula 1.50 Exam CONSTITUTIONAL/GENERAL: This is a pleasant elderly lady, fatigue but very pleasant TUBES/LINES/DRAINS:piv SKIN: No jaundice, rashes, or lesions. Ecchymoses on upper extremities. No wounds seen anteriorly. Skin temperature appropriate. Not diaphoretic. HEAD: Atraumatic. Normocephalic. EYES: Pupils equal and round and reactive. Extraocular motions intact. No scleral icterus. No injection or drainage. Fundi not examined. ENT: Hearing grossly normal. Nose without bleeding or purulent drainage. Throat without visible erythema, exudates, masses, or lesions. NECK: Trachea midline. Supple, nontender. No palpable thyroid enlargement or nodularity. CARDIOVASCULAR: Regular rate and rhythm without murmurs, gallops, or rubs. No JVD. Peripheral pulses symmetric. RESPIRATORY/CHEST: Symmetric, unlabored respirations. Decrease breath sound bilaterally GASTROINTESTINAL: Abdomen soft, non-tender, nondistended. No hepato-splenomegaly , or palpable masses. No guarding. Bowel sounds present. GENITOURINARY: Without palpable bladder distension. Beebe catheter in place. MUSCULOSKELETAL: Extremities without clubbing, cyanosis. Edematous lower ext bilateally chronic 3+. 2+ edema upper ext. Now groin or hip pain, on flexion and extension of hip and knee. LYMPHATICS: No palpable cervical or supraclavicular adenopathy. NEUROLOGICAL: Awake and alert. Motor and sensory grossly within normal limits. Follows commands. Cognitively sharp. Moves all extremities. PSYCHIATRIC: No obvious anxiety/depression. no apparent hallucinations or other psychotic thought process. Diagnostic Tests Laboratory Laboratory Tests Test 12/25/17 06:17 White Blood Count 10.0 TH/MM3 (4.0-11.0) Red Blood Count 4.00 MIL/MM3 (4.00-5.30) Hemoglobin 10.3 GM/DL (11.6-15.3) Hematocrit 32.9 % (35.0-46.0) Mean Corpuscular Volume 82.3 FL (80.0-100.0) Mean Corpuscular Hemoglobin 25.8 PG (27.0-34.0) Mean Corpuscular Hemoglobin Concent 31.4 % (32.0-36.0) Red Cell Distribution Width 19.5 % (11.6-17.2) Platelet Count 395 TH/MM3 (150-450) Mean Platelet Volume 7.4 FL (7.0-11.0) Neutrophils (%) (Auto) 83.5 % (16.0-70.0) Lymphocytes (%) (Auto) 5.2 % (9.0-44.0) Monocytes (%) (Auto) 9.9 % (0.0-8.0) Eosinophils (%) (Auto) 1.0 % (0.0-4.0) Basophils (%) (Auto) 0.4 % (0.0-2.0) Neutrophils # (Auto) 8.4 TH/MM3 (1.8-7.7) Lymphocytes # (Auto) 0.5 TH/MM3 (1.0-4.8) Monocytes # (Auto) 1.0 TH/MM3 (0-0.9) Eosinophils # (Auto) 0.1 TH/MM3 (0-0.4) Basophils # (Auto) 0.0 TH/MM3 (0-0.2) CBC Comment DIFF FINAL Differential Comment Prothrombin Time 12.2 SEC (9.8-11.6) Prothromb Time International Ratio 1.2 RATIO Blood Urea Nitrogen 28 MG/DL (7-18) Creatinine 0.91 MG/DL (0.50-1.00) Random Glucose 84 MG/DL (74-106) Calcium Level 9.7 MG/DL (8.5-10.1) Magnesium Level 1.9 MG/DL (1.5-2.5) Sodium Level 142 MEQ/L (136-145) Potassium Level 4.3 MEQ/L (3.5-5.1) Chloride Level 106 MEQ/L (98-107) Carbon Dioxide Level 28.7 MEQ/L (21.0-32.0) Anion Gap 7 MEQ/L (5-15) Estimat Glomerular Filtration Rate 60 ML/MIN (>89) Digoxin Level 1.6 NG/ML (0.8-2.0) Result Diagram: 12/25/17 0617 12/25/17 0617 Imaging Last Impressions Biopsy CT 12/25/17 0000 Signed Impressions: Service Date/Time: Monday, December 25, 2017 09:52 - CONCLUSION: Uncomplicated CT guided biopsy of the inferior pelvis mass. Kemal Falk MD Abdomen/Pelvis CT 12/22/17 0000 Signed Impressions: Service Date/Time: Friday, December 22, 2017 16:16 - CONCLUSION: Multiple known pulmonary lung masses in the right lung base. Multiple gallstones in a noninflamed gallbladder. Staghorn calculus right kidney with some additional air in the bladder. Large mass posterior to the bladder measuring 7.7 x 7.3 cm across. Jason Escudero MD Chest X-Ray 12/21/17 1330 Signed Impressions: Service Date/Time: November 13:35 - CONCLUSION: No pneumothorax status post right lung biopsy. Stable large bilateral pulmonary masses. Degenerative changes and scoliosis of the thoracic spine. Aly Samuel MD Lung Biopsy CT 12/21/17 0000 Signed Impressions: Service Date/Time: November 11:03 - CONCLUSION: Uncomplicated CT guided biopsy. Aly Smauel MD Chest CT 12/17/17 0000 Signed Impressions: Service Date/Time: Sunday, December 17, 2017 23:30 - CONCLUSION: 1. Numerous large lung masses as well as smaller lung nodules characteristic of metastatic disease. Mild mediastinal adenopathy. 2. Small right-sided pleural effusion. 3. Cholelithiasis. Ashu Ugalde MD Patient/Family Conference Present at Family Conference: patient 2 daughters. Family Conference Time (mins): 50 Family Conference Location: Bedside Issues Discussed: * Palliative care role, purpose, approach * Additional medical, psychosocial, and spiritual history * Patients general health, functional status, and cognitive changes in the months leading up to the current hospitalization * Patient/family understanding of the current medical problems * Patient/family understanding of prognosis * Patients goals of care as best understood from advance directives and/or conversations and/or values * Current medical treatment options and benefits/burdens of those options * Likely scenarios comparing ongoing aggressive care with a transition to comfort measures only * Questions answered to the best of my ability * Palliative care contact information provided Assessment and Plan Disease Oriented Problem List: (1) Lung mass (2) Atrial fibrillation (3) Mass of pelvis Symptom Scale: (1) Pain 0-10 Scale: 4 (2) Weakness 0-10 Scale: Unable to quantify Pertinent Non-Medical Issues Psychosocial: Spiritual: Legal: Ethical issues impacting care: Important Contacts Shanika Chambers [phone] (Daughter in law and health care surrogate) Judy Chambers [phone] (son and alternate health care surrogate) Prognosis 77 year old with multiple masses of the lung and blader mass. 1st 2 biopsy inconclusive interms of cancer. 3rd biopsy pending. I am concern given pt functional status, if it is cancer, tolerance for chemo and radiation would be limited. I suspect this is metastatic disease and overall prognosis appears to be poor, if that is the case. Code Status: Full Code Plan Capacity: pt has capacity to make medical decisions. health care surrogate: Should pt become incapcitated. Daughter in law Shanika Chambers is primary Health Care Surrogate. Judy Mai Jr (son) is alternate. Daughter worked with HIM and will ask HIM to scan Health Care surrogate in. Code: Full code . she would like to speak with family more. Symptoms: Pain- lower abdominal/ groin. Unlikely its muscleskeltal on my visit. There is abdominal/bladder mass vs other. Percocet available for breakthrough. weakness- suspected metastatic disease, biopsy so far has not been able to confirm neoplasm. If it is cancer, it is unlikley strength will return. May consider steroids such as decadron. Goals of Care: Spend on excess 45 min with patient and pt's 2 daughter review pt's clinical course. Patient and family are very pleasant. Review different scenario in terms of possible/and likely cancer diagnosis. * They would like to continue to further workup. If it is cancer pt would want to discuss with oncologist about options such as chemo or radiation. * Patient and family at the current time is not thinking of hospice or comfort measures only. This was gently explored but they are not ready yet at this point, without knowing more information. * Patient code status is full code. She did say "If I was just like a pumpkin " she would not prolong ventilation or life support. We went over the risk and benefit of intubation, cpr, compression especially in cancer setting. Pt at this point would like to speak more with family. Pt at this point is full code. == Palliative care will follow up to make recommendation for symptom mangement and review goals of treatment as clinical condition evolves. Thank you for the opportunity to participate in the care of Ms. Chambers. Attestation To help prompt me to consider important information that might be impacting today's encounter and assessment, information from prior notes written by myself or my colleagues may have been "brought forward" into today's note. My signature on this note, however, is an attestation that I personally performed the exam, history, and/or decision-making noted today, and, unless otherwise indicated, the interactions with patient, family, and staff as well as the review of records all occurred today. I also attest that the listed assessment and stated plan reflect my best clinical judgment today based on the combination of historical information, prior notes, and today's exam/ interactions. When time spent is documented, it refers only to time spent today by the signer, or if indicated, combined time spent today by collaborating physician/nurse practitioner. Edu Rosales MD Dec 25, 2017 09:41
--- NOTE | 2017-12-25 10:24 | PD.RAD ---
Post CT Procedure Prog Note Pre Procedure Diagnosis: (1) Mass of pelvis (2) Lung mass Post Procedure Diagnosis: (1) Lung mass (2) Mass of pelvis Procedure Date: Dec 25, 2017 Supervising Radiologist: Kemal Falk Estimated blood loss: minimal. Anesthesia: Conscious Sedation Plan of Activity Patient to Unit: ROPU Patient Condition: Good See PACS Report for procedural detail/treatment Biopsy Imaging Guidance: CT Biopsy Procedure: Pelvic Mass Site: midline pelvis mass in anatomic location of vagina Specimen: Core Biopsy Findings: solid mass 5 18G cores obtained. Plan to ROPU then return to floor. Kemal Falk MD Dec 25, 2017 10:24
--- NOTE | 2017-12-25 11:50 | RADRPT ---
EXAM DATE/TIME: 12/25/2017 09:52 [facility] COMPARISON: CT ABDOMEN & PELVIS W/O CONTRAST, December 22, 2017, 16:16. INDICATIONS : Pelvic mass SEDATION TIME: 30 minutes BIOPSY SITE: Left MEDICATION(S): 1.) 1.5 mg midazolam (Versed) IV 2.) 75 mcg fentanyl (Sublimaze) IV DEVICE(S): 1.) 17 gauge Core biopsy needle 2.) 18 gauge Temno core biopsy needle MEDICAL HISTORY : Cardiovascular disease. pelvic mass SURGICAL HISTORY : Hysterectomy. ENCOUNTER: Initial ACUITY: 1 day PAIN SCORE: 0/10 LOCATION: Left A total of five core specimen(s) were obtained and sent to the laboratory for pathologic evaluation. PROCEDURE: 1. CT guided pelvic biopsy. 2. Conscious sedation with continuous EKG and oximetry monitoring. 3. EKG and oximetry remained stable throughout the procedure. Prior to the procedure informed consent was obtained. Any appropriate prior imaging studies were rev iewed. Using automated exposure control and adjustment of the mA and/or kV according to patient size, radiat ion dose was kept as low as reasonably achievable to obtain optimal diagnostic quality images. DICOM format image data is available electronically for review and comparison. The site was prepped in a sterile fashion. Full sterile technique was used, including cap, mask, tony rile gloves and gown and a large sterile sheet. Hand hygiene and 2% chlorhexidine and/or betadine/al cohol prep was utilized per protocol for cutaneous antisepsis. The skin and subcutaneous tissues wer e infiltrated with local anesthetic solution. With CT guidance the inferior pelvis mass in the anatomic region of the vagina was localized. Biopsy was performed using the prescribed needle as above. Adequate hemostasis was obtained with compressio n at the puncture site. Follow-up CT scan reveals no hemorrhage or acute abnormality. Air is present within the mass, as expe cted. The patient tolerated the procedure well and there were no complications. The patient was returned to the Radiology Outpatient Unit in stable condition. CONCLUSION: Uncomplicated CT guided biopsy of the inferior pelvis mass. Kemal Falk MD on December 25, 2017 at 11:46 Board Certified Radiologist. This report was verified electronically.
--- NOTE | 2017-12-25 12:42 | MB ---
cc: Palma Ram Cary H MD DATE: 12/17/2017 HISTORY OF PRESENT ILLNESS: This is a 77-year-old patient with a history of uterine cancer diagnosed in 2014 who underwent hysterectomy. At that time, chemo was recommended, but declined due to her holistic ideas. Also has a history of chronic bilateral lymphedema in her legs, had a bilateral DVT and pulmonary emboli, was on Coumadin for a short time, but also due to her belief, she stopped the Coumadin. Apparently presented to the emergency room with shortness of breath, weakness and a cough, found to be in atrial fibrillation and required some IV Lopressor. She was actually initially seen in [facility] emergency room and on x-ray they found several lung masses and was sent to [facility] for further evaluation. Chest CT showed numerous large lung masses, as well as small lung nodules characteristic of metastatic disease and mild mediastinal adenopathy. The patient has undergone two lung biopsies. On the 12/19/2017, the tissue was entirely necrotic. She underwent a second one on the 12/21/2017 with extensive necrosis, interstitial fibrosis, inconclusive and neither were diagnostic. She was then sent for a CT of the pelvic mass. They obtained a solid mass and that was sent to pathology. We were consulted in lieu of the need for a possible open lung biopsy if this did not turn down man diagnostic. PAST MEDICAL HISTORY: Uterine cancer, DVT, pulmonary emboli. PAST SURGICAL HISTORY: Include hysterectomy, IVC filter for DVT. ALLERGIES: INCLUDE IRON. MEDICATIONS: The patient takes no reported medications. REVIEW OF SYSTEMS: As above in the HPI, the other 12 systems were unremarkable. PHYSICAL EXAMINATION: VITAL SIGNS: Blood pressure 120/40, heart rate of 83, afebrile. O2 saturation 92 on room air. GENERAL: The patient is awake and alert in no acute distress. The son is at the bedside. HEENT: Normocephalic, atraumatic. Oral mucosa pink and moist. NECK: Supple. No JVD. CARDIOVASCULAR: Heart sounds, S1, S2, regular rate and rhythm. No audible rubs or gallops. LUNGS: Diminished in the bases, otherwise clear to auscultation. ABDOMEN: Obese, soft, nontender. No masses or organomegaly. EXTREMITIES: Reveal +3 chronic edema. Some chronic venostasis. NEUROLOGIC: A and O x 3. No focal deficits. LABORATORY DATA: Shows hemoglobin 10, hematocrit of 33, white cell count of 10, platelet count of 395. Sodium 142, potassium 4.3, BUN of 28, creatinine 0.98. INR 1.2. Digoxin level 1.6. Micro wound cultures are negative. Pathology as above. The pelvic pathology is pending. IMPRESSION: This is a 77-year-old female who presented with shortness of breath and weakened with bilateral large pulmonary masses, a 7 x 7 x 10 mass in the left upper lobe, an 8 x 1 x 6.3 in the right upper lobe and an additional 9 x 7 cm mass in the right perihilar region. Lung biopsy nonconclusive x 2. CT pelvis, pathology pending. PLAN: At this time, we will wait for the results of the CT of the pelvic mass and then discuss further with the patient and the son whether she wants to proceed with any open lung biopsy at that time. AKI Levine MD JRT/DL , 12:23 PM , 12:42 PM
[2017-12-25] MEDS: MIRTAZAPINE 15 MG TAB PO SCH (21:30)
[2017-12-25] MEDS: ENOXAPARIN SODIUM 40 MG/0.4 ML SYRINGE SQ SCH (21:31)
[2017-12-26] VITALS (22 sets, daily range): BP systolic 120–134; BP diastolic 60–63; PULSE 70–93; RESP 16–20; TEMP 96.2–97.9; O2SAT 88–95
[2017-12-26] MEDS: oxyCODONE/ACETAMINOPHEN 5 MG/325 MG TAB PO PRN ×3 (06:28→18:49)
--- NOTE | 2017-12-26 08:08 | HHI.PR ---
Subjective Remarks c/o mirtha knee pains with walking Objective Vitals heart reg lung cta abd s/nt ext no edema Vital Signs Date Time Temp Pulse Resp B/P (MAP) Pulse Ox O2 Delivery O2 Flow Rate FiO2 12/26/17 07:46 94 2.00 12/26/17 07:42 97.9 92 16 133/60 (84) 91 12/26/17 07:16 93 12/26/17 06:00 78 12/26/17 05:10 86 12/26/17 04:47 97.7 88 16 128/60 (82) 93 12/26/17 04:03 82 12/26/17 03:02 82 12/26/17 02:08 82 12/26/17 01:01 88 12/26/17 00:38 97.7 92 16 123/60 (81) 92 12/26/17 00:00 91 12/25/17 23:11 87 12/25/17 22:04 90 12/25/17 21:21 Nasal Cannula 1.50 12/25/17 21:08 97.8 84 16 124/63 (83) 93 12/25/17 21:03 94 12/25/17 20:02 87 12/25/17 19:59 93 Nasal Cannula 1.50 12/25/17 19:01 89 12/25/17 18:15 84 12/25/17 17:16 97.7 88 18 136/49 (78) 92 12/25/17 13:39 Nasal Cannula 1.50 12/25/17 12:43 97.6 93 18 130/54 (79) 12/25/17 12:43 97.6 101 18 156/54 (88) 93 12/25/17 12:00 90 12/25/17 11:45 83 18 124/44 (70) 92 12/25/17 11:30 Nasal Cannula 1.50 12/25/17 11:15 81 20 160/55 (90) 94 12/25/17 10:54 97.6 101 18 156/54 (88) 93 12/25/17 10:45 96 20 150/66 (94) 93 12/25/17 10:30 97.6 107 18 149/52 (84) 92 Result Diagram: 12/25/1761612/25/17616 Imaging Last Impressions Abdomen/Pelvis CT 12/22/17 0000 Signed Impressions: Service Date/Time: Friday, December 22, 2017 16:16 - CONCLUSION: Multiple known pulmonary lung masses in the right lung base. Multiple gallstones in a noninflamed gallbladder. Staghorn calculus right kidney with some additional air in the bladder. Large mass posterior to the bladder measuring 7.7 x 7.3 cm across. Jason Escudero MD Chest X-Ray 12/21/17 1330 Signed Impressions: Service Date/Time: November 13:35 - CONCLUSION: No pneumothorax status post right lung biopsy. Stable large bilateral pulmonary masses. Degenerative changes and scoliosis of the thoracic spine. Aly Samuel MD Lung Biopsy CT 12/21/17 0000 Signed Impressions: Service Date/Time: November 11:03 - CONCLUSION: Uncomplicated CT guided biopsy. Aly Samuel MD Chest CT 12/17/17 0000 Signed Impressions: Service Date/Time: Sunday, December 17, 2017 23:30 - CONCLUSION: 1. Numerous large lung masses as well as smaller lung nodules characteristic of metastatic disease. Mild mediastinal adenopathy. 2. Small right-sided pleural effusion. 3. Cholelithiasis. Ashu Ugalde MD A/P Problem List: (1) Lung mass ICD Codes: R91.8 - Other nonspecific abnormal finding of lung field Status: Acute Plan: - Pt is a 77 y/o WF with hx uterine cancer s/p hysterectomy in 2014, at that time chemo was recommended but patient declined due to holistic ideas. She also had bilateral chronic lymphedema and in 2014 had bilateral DVT and had PE and was on Coumadin for short tome but due to her beliefs this was stopped. - Patient went to ED in [place] on 12/17, with complaints of SOB, weakness, and chronic cough. En route to the ED, in the ambulance, pt went into A. fib and received IV Lopressor. - She had a CXR in the ED which revealed bilateral large pulmonary masses. - She was transferred to [facility] for further management - CT Chest (12/18) --> Numerous large lung masses, measuring up to 7.5cm in the left upper lobe, 7.7cm in the right upper lobe and 10.5 and 6.7cm in the right lower lobe as well as smaller lung nodules characteristic of metastatic disease. Mild mediastinal adenopathy. Small right-sided pleural effusion. - CT guided right lung biopsy obtain (12/19) --> pathology pending. - case d/w pathology, Dr. Ma - 3 large cores were obtained but unfortunately they are necrotic, so NOT diagnostic - Case d/w pt/daughter/family at bedside. - Repeat CT guided right lung biopsy obtain (12/21) - inflammatory lung tissue, necrotic tissue, non-diagnostic - CT abd/pelvis (12/22/17) - Multiple known pulmonary lung masses in the right lung base. - Large mass posterior to the bladder measuring 7.7 x 7.3 cm across. - Case d/w pt/family at bedside (12/24). Pt/family now agree to proceed with CT guided Bx of pelvic mass in continued attempt to obtain tissue diagnosis. - If this 3rd biopsy proves NOT to be diagnostic, the family is NOT certain if they wish to proceed to with VATS procedure. - Dr Kaplan met with pt and daughters at the bedside (12/24). Current w/u and plan were discussed in detail. - Palliative care to meet with family. I discussed at length with pt and her son. Pt says she wanted the biopsy and is interested to know the tissue diagnosis. At this time she is clearly against any kind of chemotherapy that would be offered. I see no surgical cure/ option. Pt says she would just use holistic methods. I discussed hospice and comfort care. She was not interested in life support measures. She is also refusing snf. had bx of pelvic mass on 12/25. Await decisions for d/c home and arrangements for comfort per Palliative care. walk test for home o2 (2) Atrial fibrillation ICD Codes: I48.91 - Unspecified atrial fibrillation Status: Acute Plan: - observe on telemetry - IV Lopressor prn - tele: A. Fib, rate controlled - Cardizem 300mg daily - digoxin .25mg daily - digoxin level 3.8 (12/19), 1.7 (12/20), 1.8 (12/21) (3) Lymphedema ICD Codes: I89.0 - Lymphedema, not elsewhere classified Plan: - Patient has wraps on and we will continue those for now Problem Qualifiers (1) Atrial fibrillation: Qualified Codes: I48.2 - Chronic atrial fibrillation Gabriele Arias MD December 26, 2017 08:08
[2017-12-26] MEDS: DOCUSATE SODIUM 50 MG/SENNA 8.6 MG TAB PO SCH ×2 (09:00→21:00)
[2017-12-26] MEDS ORDERED: methylPREDNISolone SOD SUCC 125 MG/2 ML VIAL IV PUSH ONE (09:00)
[2017-12-26] MEDS: DIGOXIN 0.125 MG TAB PO SCH (12:01)
[2017-12-26] MEDS: DILTIAZEM-CD 300 MG CAP ER PO SCH (12:01)
[2017-12-26] MEDS: SODIUM CHLORIDE 0.9% FLUSH 10 ML FLUSH IV FLUSH SCH ×2 (12:01→21:56)
--- NOTE | 2017-12-26 13:50 | HHI.HCPN ---
Reason for visit a. To assist with evaluation and management of symptoms including:pain and weakness b. To assist medical decision maker(s) with: better understanding of current medical conditions; weighing benefits/burdens of medical treatment options; making medical treatment decisions. Subjective/Interval History Patient still endorse some knee pain with walking. Naproxen was ordered. Denies abdominal pain today, did take 2 doses of percocet. Remains weak and fatigued. Family/friend interactions Had family meeting Patient, pt's son, daughter in law ( alt HCS and primary Health Care surrogate) and pt's 2 daughters. Reviewed pt's present clinical condition. Spoke about risk and benefits, chemo vs comfort medicine; biopsy etc... At this point goals of treatment is as follows. == Should pending 3rd biopsy still is equivocal, pt and family decline cardiothoracic surgery just for the purpose of biopsy. == Pt does not want additional chemo therapy or treatment. == Pt signed and completed a community DNR. (advanced Care planning 20 min). == they are considering home health vs hospice (at home). They are amenable to learn about both, I will place consult with case managment to provide both info with home health and hospice. I did answer some question concerning hospice, and reassure them meds such as bp meds would continue. Advance Directives Living Will: Never completed Health Care Surrogate: Copy in medical record (daughter work in [employer] will scan both healthcare surrogate and community DNR.) Durable Power of Swimming Pool Plasterer Helper: Never completed Objective Vital Signs Date Time Temp Pulse Resp B/P (MAP) Pulse Ox O2 Delivery O2 Flow Rate FiO2 12/26/17 11:45 96.2 91 20 134/60 (84) 88 12/26/17 07:46 94 2.00 12/26/17 07:42 97.9 92 16 133/60 (84) 91 12/26/17 07:16 93 12/26/17 06:00 78 12/26/17 05:10 86 12/26/17 04:47 97.7 88 16 128/60 (82) 93 12/26/17 04:03 82 12/26/17 03:02 82 12/26/17 02:08 82 12/26/17 01:01 88 12/26/17 00:38 97.7 92 16 123/60 (81) 92 12/26/17 00:00 91 12/25/17 23:11 87 12/25/17 22:04 90 12/25/17 21:21 Nasal Cannula 1.50 12/25/17 21:08 97.8 84 16 124/63 (83) 93 12/25/17 21:03 94 12/25/17 20:02 87 12/25/17 19:59 93 Nasal Cannula 1.50 12/25/17 19:01 89 12/25/17 18:15 84 12/25/17 17:16 97.7 88 18 136/49 (78) 92 12/25/17 13:39 Nasal Cannula 1.50 Intake & Output 12/26/17 12/26/17 06:59 18:59 Intake Total 240 ml Balance 240 ml Intake Oral 240 ml # Voids 3 # Bowel Movements 2 Physical Exam CONSTITUTIONAL/GENERAL: This is a pleasant elderly lady, fatigue but very pleasant, up in chair. TUBES/LINES/DRAINS:piv SKIN: No jaundice, rashes, or lesions. Ecchymoses on upper extremities. No wounds seen anteriorly. Skin temperature appropriate. Not diaphoretic. HEAD: Atraumatic. Normocephalic. EYES: Pupils equal and round and reactive. Extraocular motions intact. No scleral icterus. No injection or drainage. Fundi not examined. ENT: Hearing grossly normal. Nose without bleeding or purulent drainage. Throat without visible erythema, exudates, masses, or lesions. NECK: Trachea midline. Supple, nontender. No palpable thyroid enlargement or nodularity. CARDIOVASCULAR: Regular rate and rhythm without murmurs, gallops, or rubs. No JVD. Peripheral pulses symmetric. RESPIRATORY/CHEST: Symmetric, unlabored respirations. Decrease breath sound bilaterally GASTROINTESTINAL: Abdomen soft, non-tender, nondistended. No hepato-splenomegaly , or palpable masses. No guarding. Bowel sounds present. GENITOURINARY: Without palpable bladder distension. Beebe catheter in place. MUSCULOSKELETAL: Extremities without clubbing, cyanosis. Edematous lower ext bilateally chronic 3+. 2+ edema upper ext. Now groin or hip pain, on flexion and extension of hip and knee. LYMPHATICS: No palpable cervical or supraclavicular adenopathy. NEUROLOGICAL: Awake and alert. Motor and sensory grossly within normal limits. Follows commands. Cognitively sharp. Moves all extremities. PSYCHIATRIC: No obvious anxiety/depression. no apparent hallucinations or other psychotic thought process. Diagnostic Tests Laboratory Laboratory Tests Test 12/25/17 06:17 White Blood Count 10.0 TH/MM3 (4.0-11.0) Red Blood Count 4.00 MIL/MM3 (4.00-5.30) Hemoglobin 10.3 GM/DL (11.6-15.3) Hematocrit 32.9 % (35.0-46.0) Mean Corpuscular Volume 82.3 FL (80.0-100.0) Mean Corpuscular Hemoglobin 25.8 PG (27.0-34.0) Mean Corpuscular Hemoglobin Concent 31.4 % (32.0-36.0) Red Cell Distribution Width 19.5 % (11.6-17.2) Platelet Count 395 TH/MM3 (150-450) Mean Platelet Volume 7.4 FL (7.0-11.0) Neutrophils (%) (Auto) 83.5 % (16.0-70.0) Lymphocytes (%) (Auto) 5.2 % (9.0-44.0) Monocytes (%) (Auto) 9.9 % (0.0-8.0) Eosinophils (%) (Auto) 1.0 % (0.0-4.0) Basophils (%) (Auto) 0.4 % (0.0-2.0) Neutrophils # (Auto) 8.4 TH/MM3 (1.8-7.7) Lymphocytes # (Auto) 0.5 TH/MM3 (1.0-4.8) Monocytes # (Auto) 1.0 TH/MM3 (0-0.9) Eosinophils # (Auto) 0.1 TH/MM3 (0-0.4) Basophils # (Auto) 0.0 TH/MM3 (0-0.2) CBC Comment DIFF FINAL Differential Comment Prothrombin Time 12.2 SEC (9.8-11.6) Prothromb Time International Ratio 1.2 RATIO Blood Urea Nitrogen 28 MG/DL (7-18) Creatinine 0.91 MG/DL (0.50-1.00) Random Glucose 84 MG/DL (74-106) Calcium Level 9.7 MG/DL (8.5-10.1) Magnesium Level 1.9 MG/DL (1.5-2.5) Sodium Level 142 MEQ/L (136-145) Potassium Level 4.3 MEQ/L (3.5-5.1) Chloride Level 106 MEQ/L (98-107) Carbon Dioxide Level 28.7 MEQ/L (21.0-32.0) Anion Gap 7 MEQ/L (5-15) Estimat Glomerular Filtration Rate 60 ML/MIN (>89) Digoxin Level 1.6 NG/ML (0.8-2.0) Result Diagram: 12/25/1761612/25/17616 Assessment and Plan Disease Oriented Problem List: (1) Lung mass (2) Atrial fibrillation (3) Mass of pelvis Symptom Scale: (1) Pain 0-10 Scale: 4 (2) Weakness 0-10 Scale: Unable to quantify Pertinent Non-Medical Issues Psychosocial: Spiritual: Legal: Ethical issues impacting care: Important Contacts Shanika Chambers [phone] (Daughter in law and health care surrogate) Judy Chambers [phone] (son and alternate health care surrogate) Prognosis 77 year old with multiple masses of the lung and blader mass. 1st 2 biopsy inconclusive interms of cancer. 3rd biopsy pending. I am concern given pt functional status, if it is cancer, tolerance for chemo and radiation would be limited. I suspect this is metastatic disease and overall prognosis appears to be poor, if that is the case. Code Status: No Code Plan Capacity: pt has capacity to make medical decisions. health care surrogate: Should pt become incapcitated. Daughter in law Shanika Chambers is primary Health Care Surrogate. Judy Mai Jr (son) is alternate. Daughter worked with [employer] and will ask [employer] to scan Health Care surrogate in. Code:DNR Symptoms: Pain- lower abdominal/ groin. Unlikely its muscleskeltal on my visit. There is abdominal/bladder mass vs other. Percocet available for breakthrough. knee pain, on Naprosyn. weakness- suspected metastatic disease, biopsy so far has not been able to confirm neoplasm. If it is cancer, it is unlikley strength will return. May consider steroids such as decadron. Goals of Care: Had family meeting Patient, pt's son, daughter in law ( alt HCS and primary Health Care surrogate) and pt's 2 daughters. Reviewed pt's present clinical condition. Spoke about risk and benefits, chemo vs comfort medicine; biopsy etc... At this point goals of treatment is as follows. * Should pending 3rd biopsy still is equivocal, pt and family decline cardiothoracic surgery just for the purpose of biopsy. * Pt does not want additional chemo therapy or treatment. * Pt signed and completed a community DNR. (advanced Care planning 20 min). * they are considering home health vs hospice (at home). They are amenable to learn about both, I will place consult with case management to provide both info with home health and hospice. I did answer some question concerning hospice, and reassure them meds such as bp meds would continue. == Palliative care will follow up to make recommendation for symptom mangement and review goals of treatment as clinical condition evolves. Attestation To help prompt me to consider important information that might be impacting today's encounter and assessment, information from prior notes written by myself or my colleagues may have been "brought forward" into today's note. My signature on this note, however, is an attestation that I personally performed the exam, history, and/or decision-making noted today, and, unless otherwise indicated, the interactions with patient, family, and staff as well as the review of records all occurred today. I also attest that the listed assessment and stated plan reflect my best clinical judgment today based on the combination of historical information, prior notes, and today's exam/ interactions. When time spent is documented, it refers only to time spent today by the signer, or if indicated, combined time spent today by collaborating physician/nurse practitioner. Edu Rosales MD December 26, 2017 13:50
[2017-12-26] MEDS: ENOXAPARIN SODIUM 40 MG/0.4 ML SYRINGE SQ SCH (18:48)
[2017-12-26] MEDS: MIRTAZAPINE 15 MG TAB PO SCH (21:30)
[2017-12-26] MEDS: NAPROXEN 500 MG TAB PO SCH (21:31)
[2017-12-27] VITALS (15 sets, daily range): BP systolic 112–132; BP diastolic 50–63; PULSE 70–89; RESP 16–20; TEMP 97.3–98.4; O2SAT 92–96
[2017-12-27] MEDS ORDERED: methylPREDNISolone SOD SUCC 125 MG/2 ML VIAL IV PUSH ONE (09:15)
[2017-12-27] MEDS ORDERED: OXYC1TAB63 PO (09:22)
[2017-12-27] MEDS ORDERED: DIGO0.12 PO (09:22)
[2017-12-27] MEDS ORDERED: NAPR500 PO (09:22)
[2017-12-27] MEDS ORDERED: DILT300C3 PO (09:22)
--- NOTE | 2017-12-27 09:22 | HHI.DCPOC ---
Discharge Care Plan Diagnosis: (1) Spindle cell carcinoma (2) Lung mass (3) Mass of pelvis (4) Atrial fibrillation Goals to Promote Your Health * To prevent worsening of your condition and complications * To maintain your health at the optimal level Directions to Meet Your Goals Take your medications as prescribed Follow your dietary instruction Follow activity as directed Keep your appointments as scheduled Take your immunizations and boosters as scheduled If your symptoms worsen call your PCP, if no PCP go to Urgent Care Center or Emergency Room Smoking is Dangerous to Your Health. Avoid second hand smoke Call the 24-hour hour crisis hotline for domestic abuse at Gabriele Arias MD December 27, 2017 09:22
[2017-12-27] MEDS ORDERED: ASPI81TA81 PO (09:26)
--- NOTE | 2017-12-27 09:31 | HHI.DS ---
Discharge Summary Admission Date Dec 17, 2017 at 19:18 Discharge Date: December 27, 2017 Admitting Diagnosis lung mass (1) Spindle cell carcinoma Diagnosis: Principal ICD Codes: C80.1 - Malignant (primary) neoplasm, unspecified (2) Lung mass Diagnosis: Principal ICD Codes: R91.8 - Other nonspecific abnormal finding of lung field Status: Acute (3) Atrial fibrillation Diagnosis: Principal ICD Codes: I48.91 - Unspecified atrial fibrillation Status: Acute (4) Mass of pelvis Diagnosis: Principal ICD Codes: R19.00 - Intra-abdominal and pelvic swelling, mass and lump, unspecified site Brief History 77 y/o white female with hx uterine cancer s/p hysterectomy 2015 at that time chemo was recommended but patient declined due to hololistic ideas ,also had bilateral chronic lymphedema and in 2014 had bilateral DVT and had PE and was on coumadin for short tome but due to her beliefs was stopped off coumadin. Patient went to er with SOB,weakness,and chronic cough in ambulance was in atrial fib and recurred IV lopressor and continues to be in and out of Afib . Patient was in [facility] ER and found on chest xray to have several lung mass and sent to [facility] for evaluation. Denies weight loss nausea or vomit and on no significant medications. CBC/BMP: 12/25/17 0617 12/25/17 0617 Significant Findings Laboratory Tests Test 12/25/17 06:17 Hemoglobin 10.3 GM/DL (11.6-15.3) Hematocrit 32.9 % (35.0-46.0) Mean Corpuscular Hemoglobin 25.8 PG (27.0-34.0) Mean Corpuscular Hemoglobin Concent 31.4 % (32.0-36.0) Red Cell Distribution Width 19.5 % (11.6-17.2) Neutrophils (%) (Auto) 83.5 % (16.0-70.0) Lymphocytes (%) (Auto) 5.2 % (9.0-44.0) Monocytes (%) (Auto) 9.9 % (0.0-8.0) Neutrophils # (Auto) 8.4 TH/MM3 (1.8-7.7) Lymphocytes # (Auto) 0.5 TH/MM3 (1.0-4.8) Monocytes # (Auto) 1.0 TH/MM3 (0-0.9) Prothrombin Time 12.2 SEC (9.8-11.6) Blood Urea Nitrogen 28 MG/DL (7-18) Estimat Glomerular Filtration Rate 60 ML/MIN (>89) Hospital Course (1) Lung mass - Pt is a 77 y/o WF with hx uterine cancer s/p hysterectomy in 2014, at that time chemo was recommended but patient declined due to holistic ideas. She also had bilateral chronic lymphedema and in 2014 had bilateral DVT and had PE and was on Coumadin for short tome but due to her beliefs this was stopped. - Patient went to ED in [place] on 12/17, with complaints of SOB, weakness, and chronic cough. En route to the ED, in the ambulance, pt went into A. fib and received IV Lopressor. - She had a CXR in the ED which revealed bilateral large pulmonary masses. - She was transferred to [facility] for further management - CT Chest (12/18) --> Numerous large lung masses, measuring up to 7.5cm in the left upper lobe, 7.7cm in the right upper lobe and 10.5 and 6.7cm in the right lower lobe as well as smaller lung nodules characteristic of metastatic disease. Mild mediastinal adenopathy. Small right-sided pleural effusion. - CT guided right lung biopsy obtain (12/19) --> - case d/w pathology, Dr. Ma - 3 large cores were obtained but unfortunately they are necrotic, so NOT diagnostic - Case d/w pt/daughter/family at bedside. - Repeat CT guided right lung biopsy obtain (12/21) - inflammatory lung tissue, necrotic tissue, non-diagnostic - CT abd/pelvis (12/22/17) - Multiple known pulmonary lung masses in the right lung base. - Large mass posterior to the bladder measuring 7.7 x 7.3 cm across. - Case d/w pt/family at bedside (12/24). Pt/family now agree to proceed with CT guided Bx of pelvic mass in continued attempt to obtain tissue diagnosis. -Long talk with pt/son. palliative has been discussing her goals with family. 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 Either way the the pt wants no further biopsies and refuses any attempts to consult with oncologist for potential treatment. She is more interested in holistic methods. she has decided on dnr and comfort. No decision for hospice at this point. We are arranging [facility] for her. She will be discharged once arrangements are made. (2) Atrial fibrillation continue dig/cardizem. asa. Pt Condition on Discharge: Stable Discharge Disposition: Disch w/ Home Health Serv Discharge Instructions DIET: Follow Instructions for: As Tolerated, No Restrictions Activities you can perform: Regular-No Restrictions Follow up Referrals: PCP Follow-up - 10 Days New Medications: Aspirin DR (Aspir-81) 81 Mg Tabdr 81 MG PO DAILY for afib, #180 TAB start taking on / Digoxin (Digoxin) 0.125 Mg Tab 0.125 MG PO DAILY for afib, #30 TAB 3 Refills Diltiazem CD 24 HR (Diltiazem CD 24 HR) 300 Mg Caper 300 MG PO DAILY for afib, #30 CAP 3 Refills Naproxen (Naprosyn) 500 Mg Tab 500 MG PO Q12HR for Inflammation for 3 Days, TAB Oxycodone HCl/Acetaminophen (Oxycodone-Acetaminophen 5-325) 5 Mg-325 Mg Tablet 1 TAB PO Q4H PRN for pain, #30 TAB Gabriele Arias MD December 27, 2017 09:31
--- NOTE | 2017-12-27 09:32 | HHI.FF ---
Face to Face Verification Diagnosis: (1) Spindle cell carcinoma (2) Atrial fibrillation (3) Lung mass (4) Mass of pelvis Physical Therapy Order: Evaluate and Treat, Improve ambulation Home Health Nursing Order: Medical education Signs/symptoms of disease process Medication education-adverse effect Nursing assessment with vital signs I have seen patient Rachelle Chambers on 12/27/17. My clinical findings support the need for the requested home health care services because: Ltd mobility - disease progression Limited ability to care for self I certify that my clinical findings support that this patient is homebound because: Unsteady gait/balance Need for psychosocial assistance Gabriele Arias MD December 27, 2017 09:32
[2017-12-27] MEDS: DOCUSATE SODIUM 50 MG/SENNA 8.6 MG TAB PO SCH (10:03)
[2017-12-27] MEDS: NAPROXEN 500 MG TAB PO SCH (10:03)
[2017-12-27] MEDS: DILTIAZEM-CD 300 MG CAP ER PO SCH (10:03)
[2017-12-27] MEDS: SODIUM CHLORIDE 0.9% FLUSH 10 ML FLUSH IV FLUSH SCH (10:04)
[2017-12-27] MEDS: DIGOXIN 0.125 MG TAB PO SCH (10:04)
[2017-12-27] MEDS: oxyCODONE/ACETAMINOPHEN 5 MG/325 MG TAB PO PRN (11:01)
== END 2017-12-27 17:23 | disposition hospice, home (50) | DRG 181 ==
LOC: NEDDLT 16:08 → HCPC 19:18 → HCIN 12-20 18:17
PROVIDERS: ADMIT Hospitalist; ATTEND Hospitalist
PROC: 0BBK3ZX Excision of Right Lung, Percutaneous Approach, Diagnostic (ICD-10-PCS; principal; 2017-12-19)
PROC: 0BBK3ZX Excision of Right Lung, Percutaneous Approach, Diagnostic (ICD-10-PCS; 2017-12-21)
PROC: 0DBW3ZX Excision of Peritoneum, Percutaneous Approach, Diagnostic (ICD-10-PCS; 2017-12-25)
DX: C78.01 Secondary malignant neoplasm of right lung (principal); C79.89 Secondary malignant neoplasm of other specified sites; J90 Pleural effusion, not elsewhere classified; I48.2 Chronic atrial fibrillation; C78.02 Secondary malignant neoplasm of left lung; R63.0 Anorexia; I89.0 Lymphedema, not elsewhere classified; K80.20 Calculus of gallbladder without cholecystitis without obstruction; Z66 Do not resuscitate; Z51.5 Encounter for palliative care; Z85.42 Personal history of malignant neoplasm of other parts of uterus; Z86.711 Personal history of pulmonary embolism; Z86.718 Personal history of other venous thrombosis and embolism
CPT/HCPCS: 32405; 49180; 71045; 71046; 71250; 74176; 76937; 77012; 80048; 80053; 80162; 82550; 82948; 83735; 83880; 84484; 85025; 85610; 87015; 87070; 87102; 87116; 87176; 87205; 87206; 88305; 88307; 88333; 88341; 88342; 93005; 94618; 96374; 96376; 99152; 99153; J1160; J1650; J2250; J2930; J3010; J7030